=== PATIENT | female | born 1940 | race Caucasian/White ===

== ENCOUNTER 2016-10-28 16:04 | Emergency (ER) | payer OTHER, BC ==
[2016-10-28 16:16] VITALS: TEMP 97.4; BMI 24.0
[2016-10-28] MEDS ORDERED: methylPREDNISolone NA SUCC 125 MG/2 ML VIAL IVPB ONE (16:49)
[2016-10-28] MEDS ORDERED: FAMOTIDINE 20 MG/50 ML IVPB 50 ML IVPB ONE ×2 (16:49→17:05)
[2016-10-28] MEDS ORDERED: SODIUM CHLORIDE 1,000 ML IV STA (16:49)
[2016-10-28] MEDS ORDERED: methylPREDNISolone NA SUCC 125 MG/2 ML VIAL ONE ×2 (17:04→17:06)
--- NOTE | 2016-10-28 17:07 | PDOC ---
History of Present Illness - History of Present Illness Initial Comments: 10/28/16 18:36 Patient is a 76 year old female with no significant medical hx who is presenting to the ED with diffuse itchy rash for three days. One week ago the patient began experiencing some gastric upset and dizziness. The patient characterizes her dizziness as the room spinning and her abdominal discomfort as a squeezing sensation to her upper quadrants. She saw her PMD Dr. Alvaro Kebede on 10/22 for symptoms and was prescribed meclizine and omeprazole. The patient filled her prescriptions and began taking them three days later. Her symptoms relieved initially but then she developed a progressive itchy rash later in the day. Her rash is spread diffusely to her face, chest, back, abdomen , upper and lower extremities. The patient saw her PMD again who prescribed her a methylpred pack and benadryl. She came to the ED today because her symptoms have persisted and worsened despite treatment. Since starting meclizine and omeprazole, patients dizziness and epigastric discomfort have resolved. Patient denies shortness of breath, chest pain, throat swelling, nausea, vomiting, diarrhea, Patient denies using new soaps, new shampoos, new deodorants, new clothes, new detergents, and new lotions. Social Hx: denies tobacco, alcohol, drug use Surgical Hx: Appendectomy <Yaz Rodrigez - Last Filed: 10/28/16 18:36> - General History Source: Patient Exam Limitations: No Limitations <Matthieu Newell - Last Filed: 10/28/16 19:50> - General Chief Complaint: Blood Pressure Problem Stated Complaint: REACTION TO MEDS Time Seen by Provider: 10/28/16 16:26 Past History <Yaz Rdorigez - Last Filed: 10/28/16 18:36> - Past Medical History GI Disorders: Yes (IBS) - Surgical History Appendectomy: Yes - Immunization History Immunization Up to Date: Yes - Psycho/Social/Smoking Cessation Hx Suicidal Ideation: No Smoking History: Never smoked Have you smoked in the past 12 months: No Hx Alcohol Use: No Drug/Substance Use Hx: No Substance Use Type: None Hx Substance Use Treatment: No <Matthieu Newell - Last Filed: 10/28/16 19:50> - Past Medical History Allergies/Adverse Reactions: Allergies Allergy/AdvReac Type Severity Reaction Status Date / Time ketorolac tromethamine Allergy Verified 10/28/16 16:07 [From Toradol] Home Medications: Ambulatory Orders Aspirin [ASA -] 81 mg PO DAILY 07/17/15 Fluticasone Propionate [Flovent Diskus] 50 mcg NS DAILY 07/17/15 Montelukast Na [Singulair -] 10 mg PO HS 07/17/15 Diphenhydramine HCl [Benadryl -] 25 mg PO Q6H PRN #20 capsule 10/28/16 Epinephrine [Adrenaclick] 0.3 mg IJ ONCE PRN #2 auto.injct 10/28/16 Famotidine [Pepcid] 20 mg PO BID PRN #14 tablet 10/28/16 Prednisone 10 mg PO DAILY #15 tablet 10/28/16 Review of Systems - Review of Systems Comments:: 10/28/16 18:37 GENERAL/CONSTITUTIONAL: No fever or chills. No weakness. HEAD, EYES, EARS, NOSE AND THROAT: No change in vision. No ear pain or discharge. No sore throat. CARDIOVASCULAR: No chest pain or shortness of breath. RESPIRATORY: No cough, wheezing, or hemoptysis. GASTROINTESTINAL: Upper quadrant discomfort. No nausea, vomiting, diarrhea or constipation. GENITOURINARY: No dysuria, frequency, or change in urination. MUSCULOSKELETAL: No joint or muscle swelling or pain. No neck or back pain. SKIN: Itchy rash NEUROLOGIC: Dizziness. No headache, loss of consciousness, or change in strength /sensation. <Yaz Rodrigez - Last Filed: 10/28/16 18:36> *Physical Exam - Vital Signs Last Vital Signs Temp Pulse Resp BP Pulse Ox 97.4 F L 79 20 155/77 100 10/28/16 16:08 10/28/16 16:08 10/28/16 16:08 10/28/16 16:08 10/28/16 16:08 - Physical Exam Comments: 10/28/16 18:39 GENERAL: Awake, alert, and fully oriented, in no acute distress HEAD: No signs of trauma EYES: PERRLA, EOMI, sclera anicteric, conjunctiva clear ENT: Auricles normal inspection, hearing grossly normal, nares patent, oropharynx clear without exudates. Moist mucosa NECK: Normal ROM, supple, no lymphadenopathy, JVD, or masses LUNGS: Breath sounds equal, clear to auscultation bilaterally. No wheezes, and no crackles HEART: Regular rate and rhythm, normal S1 and S2, no murmurs, rubs or gallops ABDOMEN: Soft, nontender, normoactive bowel sounds. No guarding, no rebound. No masses EXTREMITIES: Normal range of motion, no edema. No clubbing or cyanosis. No cords, erythema, or tenderness NEUROLOGICAL: Cranial nerves II through XII grossly intact. Normal speech, normal gait SKIN: Diffuse urticaria face, back, chest, extremities upper and lower. Warm, Dry, normal turgor, no lesions noted. ENDOCRINE: No increased thirst. No abnormal weight change. HEMATOLOGIC/LYMPHATIC: No anemia, easy bleeding, or history of blood clots. ALLERGIC/IMMUNOLOGIC: No hives or skin allergy. <Yaz Rodrigez - Last Filed: 10/28/16 18:36> - Vital Signs Last Vital Signs Temp Pulse Resp BP Pulse Ox 97.4 F L 79 20 155/77 100 10/28/16 16:08 10/28/16 16:08 10/28/16 16:08 10/28/16 16:08 10/28/16 16:08 <Matthieu Newell - Last Filed: 10/28/16 19:50> Heart Score/ECG Review - History History: Slightly suspicious - Electrocardiogram EKG: Normal - Age Age: >/= 65 - Risk Factors Based on the list above the patient has:: No risk factors known - Troponin Troponin: </= normal limit - Score Heart Score - Total: 2 #1 ECG reviewed & interpreted by me at: 18:40 10/28/16 19:06 NSR 67, no std/alcides, T wave flat III, normal axis, normal intervals, QTC 452 msec <Matthieu Newell - Last Filed: 10/28/16 19:50> ED Treatment Course - LABORATORY CBC & Chemistry Diagram: 10/28/16 16:09 10/28/16 16:09 - ADDITIONAL ORDERS Additional order review: 10/28/16 16:09 RBC 4.31 MCV 91.0 MCHC 34.5 RDW 13.1 MPV 9.3 D Neutrophils % 68.6 Lymphocytes % 22.8 Monocytes % 7.6 Eosinophils % 0.4 Basophils % 0.6 - RADIOLOGY Radiograph Interpretation: 10/28/16 18:40 Chest X-Ray Impression: No significant interval change or acute lung disease is present. Reported By: Justin Pantoja MD - Medications Given in the ED: ED Medications Discontinued Medications Generic Name Dose Route Start Last Admin Trade Name Juanq PRN Reason Stop Dose Admin Diphenhydramine HCl 25 mg 10/28/16 16:49 10/28/16 17:33 Benadryl Injection - IVPB 10/28/16 16:50 25 mg ONCE ONE Administration Famotidine/Sodium Chloride 50 mls @ 100 mls/hr 10/28/16 16:49 10/28/16 17:34 Pepcid 20 Mg Premixed Ivpb - IVPB 10/28/16 17:18 100 mls/hr ONCE ONE Administration Sodium Chloride 1,000 mls @ 1,000 mls/hr 10/28/16 16:49 10/28/16 17:34 Normal Saline - IV 10/28/16 17:48 1,000 mls/hr ASDIR STA Administration Methylprednisolone Sodium Succinate 125 mg 10/28/16 16:49 10/28/16 17:34 Solu-Medrol - IVPB 10/28/16 16:50 125 mg ONCE ONE Administration <Yaz Rodrigez - Last Filed: 10/28/16 18:36> - LABORATORY CBC & Chemistry Diagram: 10/28/16 16:09 10/28/16 16:09 <Matthieu Newell - Last Filed: 10/28/16 19:50> Medical Decision Making - Medical Decision Making 10/28/16 16:50 A portion of this note was written by my scribe, under my supervision. Vital Signs Temp Pulse Resp BP Pulse Ox 97.4 F L 79 20 155/77 100 10/28/16 16:08 10/28/16 16:08 10/28/16 16:08 10/28/16 16:08 10/28/16 16:08 76 year old female with reportedly no PMH p/w diffuse urticaria. The patient around 10/20/16 was c/o intermittent vertiginous like symptoms. The patient was seen on 10/[address] Alvaro Kebede. The patient was also complaining about some GERD like pain and intermittent vertigo. She was prescribed meclizine and omeprazole. On 10/23, the patient had taken a meclizine and reported no symptoms. 3 days ago (10/25), the patient had a 10 minute episodes of epigastric tightness with vertigo like symptoms. She denied mid sternal chest pain or SOB. The patient then took a meclizine and omeprazole. The patient symptoms improved 10 minutes later. However, gradually later in the day , developed progressively worsening urticaria (diffuse). Went back to Dr. Kebede , was prescribed a methylpred pack and benadryl. Today is the 3rd day, and despite adherence, the urticaria has worsened. No chest pain or SOB. No throat swelling. Came into an ED for evaluation. Patient denies any new soaps, shampoos , exposures. It is not very clear what her allergies is from. At this time, there is no form of anaphylaxis at this time. Will trial IV solu-medrol, IV benadryl, and IV pepcid. The description of the dizziness sounds like vertigo and less likely near syncope. However, with the intermittent epigastric discomfort, will obtain an ECG and troponin and chest xray as well. Will re-evaluate the patient. 10/28/16 19:43 Chest xray reviewed. No acute findings. CBC, BMP 10/28/16 16:09 10/28/16 16:09 CMP Sodium 140 mmol/L (136-145) 10/28/16 16:09 Potassium 4.2 mmol/L (3.5-5.1) 10/28/16 16:09 Chloride 104 mmol/L (98-107) 10/28/16 16:09 Carbon Dioxide 27 mmol/L (21-32) 10/28/16 16:09 Anion Gap 9 (8-16) 10/28/16 16:09 BUN 20 mg/dL (7-18) H D 10/28/16 16:09 Creatinine 0.8 mg/dL (0.55-1.02) D 10/28/16 16:09 Creat Clearance w eGFR > 60 (>60) 10/28/16 16:09 Random Glucose 104 mg/dL (74-106) D 10/28/16 16:09 Calcium 9.2 mg/dL (8.5-10.1) 10/28/16 16:09 Total Bilirubin 0.6 mg/dL (0.2-1.0) 10/28/16 16:09 AST 20 U/L (15-37) D 10/28/16 16:09 ALT 21 U/L (12-78) 10/28/16 16:09 Alkaline Phosphatase 69 U/L (45-117) 10/28/16 16:09 Creatine Kinase 138 IU/L (26-192) 10/28/16 16:09 Troponin I < 0.02 ng/ml (0.00-0.05) 10/28/16 16:09 Total Protein 7.7 g/dl (6.4-8.2) 10/28/16 16:09 Albumin 4.1 g/dl (3.4-5.0) 10/28/16 16:09 Lipase 86 U/L (73-393) 10/28/16 16:54 The patient's skin has improved dramatically and with significant clearing of the urticaria. I had discussed the case with the patient's primary care physician Dr. Kebede. Details of the case is discussed with him and he is aware. He requests that the patient follow up this Tuesday for outpatient follow- up. I will give her a tapering dose of steroids of prednisone at the request of the patient's PMD. Return precautions given. Patient verbalizes understanding agrees with plan. I discussed the physical exam findings, ancillary test results and final diagnoses with the patient. I answered all of the patient's questions. The patient was satisfied with the care received and felt comfortable with the discharge plan and treatment plan. The patient will call their primary care physician within 24 hours to arrange follow-up and will return to the Emergency Department with any new, persistant or worsening symptoms. <Matthieu Newell - Last Filed: 10/28/16 19:50> *DC/Admit/Observation/Transfer - Attestations Scribe Attestion: 10/28/16 18:41 Documentation prepared by Yaz Rodrigez, acting as biomedical equipment specialist for Matthieu Newell MD. <Yaz Rodrigez - Last Filed: 10/28/16 18:36> - Discharge Dispostion Admit: No <Matthieu Newell - Last Filed: 10/28/16 19:50> Diagnosis at time of Disposition: Allergic reaction Qualifiers: Encounter type: initial encounter Qualified Code(s): T78.40XA - Allergy, unspecified, initial encounter - Discharge Dispostion Disposition: HOME Condition at time of disposition: Improved - Prescriptions Prescriptions: Epinephrine [Adrenaclick] 0.3 mg IJ ONCE PRN #2 auto.injct PRN Reason: Anaphylaxis Diphenhydramine HCl [Benadryl -] 25 mg PO Q6H PRN #20 capsule PRN Reason: Rash/Itching Famotidine [Pepcid] 20 mg PO BID PRN #14 tablet PRN Reason: Allergic Reaction Prednisone 10 mg PO DAILY #15 tablet - Referrals Referrals: Alvaro Kebede MD [Primary Care Provider] - - Patient Instructions Printed Discharge Instructions: DI for Adverse Drug Reaction -- Allergic Additional Instructions: Please take the prednisone as prescribed. Take 25 mg of benadryl every 6 hours and/or 20 mg pepcid every 12 hours as needed for rash/allergic reaction. If you have difficulty breathing or throat swelling, please use the adrenaclick (epi-pen) and come to the ER. Follow up with Dr. Alvaro Kebede on Tuesday.
[2016-10-28 18:01] LABS: BASOPHIL 0.6 % (0-2.0); EOSINOPHIL 0.4 % (0-4.5); MCH 31.4 pg (25.7-33.7); MCHC 34.5 g/dl (32.0-36.0); MEAN PLT VOLUME 9.3 fl (7.5-11.1); NEUTROPHILS 68.6 % (42.8-82.8); PLATELET COUNT 228 K/MM3 (134-434); RDW 13.1 % (11.6-15.6); WHITE BLOOD COUNT 5.6 K/mm3 (4.0-10.0)
[2016-10-28 18:25] LABS: ALBUMIN 4.1 g/dl (3.4-5.0); ANION GAP 9 (8-16); BILIRUBIN,TOTAL 0.6 mg/dL (0.2-1.0); CALCIUM 9.2 mg/dL (8.5-10.1); CO2 27 mmol/L (21-32); CREATININE 0.8 mg/dL (0.55-1.02); GLUCOSE,RANDOM 104 mg/dL (74-106); SGOT/AST 20 U/L (15-37); SGPT/ALT 21 U/L (12-78); TOT PROT 7.7 g/dl (6.4-8.2)
[2016-10-28 18:27] LABS: ALK PHOS 69 U/L (45-117); TROPONIN I < 0.02 ng/ml (0.00-0.05)
[2016-10-28 19:05] VITALS: BP 173/85; PULSE 62
--- NOTE | 2016-10-29 10:10 | EKG ---
Test Reason : Blood Pressure : / mmHG Vent. Rate : 072 BPM Atrial Rate : 072 BPM P-R Int : 102 ms QRS Dur : 092 ms QT Int : 396 ms P-R-T Axes : 000 144 -41 degrees QTc Int : 433 ms SINUS RHYTHM WITH SHORT GA WITH PREMATURE ATRIAL COMPLEXES LEFT POSTERIOR FASCICULAR BLOCK POSSIBLE INFERIOR INFARCT , AGE UNDETERMINED NONSPECIFIC T WAVE ABNORMALITY ABNORMAL ECG Confirmed by KENAN VILLALBA MD ([id number]) on 10/29/2016 10:10:37 AM Referred By: Confirmed By:KENAN VILLALBA MD
--- NOTE | 2016-11-01 16:24 | EKG ---
Test Reason : Blood Pressure : / mmHG Vent. Rate : 067 BPM Atrial Rate : 067 BPM P-R Int : 124 ms QRS Dur : 092 ms QT Int : 428 ms P-R-T Axes : 055 051 034 degrees QTc Int : 452 ms NORMAL SINUS RHYTHM WITH SINUS ARRHYTHMIA NORMAL ECG WHEN COMPARED WITH ECG OF 28-OCT-2016 17:11, PREMATURE ATRIAL COMPLEXES ARE NO LONGER PRESENT Confirmed by PAWEL ALVES, ROMÁN ([id number]) on 11/01/2016 4:23:55 PM Referred By: Confirmed By:ROMÁN ARMAS MD
== END 2016-10-28 20:05 | disposition home or self-care (01) ==
LOC: JER 16:04
PROC: 3E033GC Introduction of Other Therapeutic Substance into Peripheral Vein, Percutaneous Approach (ICD-10-PCS; principal; 2016-10-28)
PROC: 3E0333Z Introduction of Anti-inflammatory into Peripheral Vein, Percutaneous Approach (ICD-10-PCS; 2016-10-28)
DX: T78.40XA Allergy, unspecified, initial encounter (principal); L50.0 Allergic urticaria
CPT/HCPCS: 36415; 71020-TC; 80053; 82550; 83690; 84484; 85025; 93005; 93010; 99283-25

== ENCOUNTER 2017-08-30 06:25 | Day surgery (SDC) | payer OTHER, BC ==
[2017-08-29 10:17] VITALS: BMI 24.7
[2017-08-30 06:54] VITALS: TEMP 97.1
[2017-08-30] MEDS ORDERED: BUPIVACAINE HCL/PF 0.25% (2.5MG/ML) 10 ML VIAL ONE (07:49)
[2017-08-30] MEDS ORDERED: BETAMET ACET/BETAMET NA PH 30 MG/5 ML VIAL ONE (07:49)
[2017-08-30] MEDS ORDERED: LIDOCAINE HCL 1%, 10 MG/ML (20ML VIAL) ONE (07:53)
[2017-08-30] MEDS ORDERED: PROPOFOL 20 ML ONE (08:31)
[2017-08-30] MEDS ORDERED: BETAMET ACET/BETAMET NA PH 30 MG/5 ML VIAL IM ONE (08:40)
[2017-08-30] MEDS ORDERED: LIDOCAINE HCL 1% PRESERVATIVE FREE - 30ML VIAL IJ ONE (08:40)
[2017-08-30] MEDS ORDERED: IOHEXOL 180 MG/1 ML ML IJ ONE (08:40)
[2017-08-30] MEDS ORDERED: BUPIVACAINE HCL/PF 0.25% (2.5MG/ML) 10 ML VIAL IJ ONE (08:40)
[2017-08-30 11:06] VITALS: BP 149/70; PULSE 63
--- NOTE | 2017-08-30 14:58 | PROC ---
Procedure Note Procedure: Date of service: 08/30/2017 Preoperative Diagnosis: Low back pain and lumbar radiculopathy on Left Postoperative Diagnosis: Same Procedure Performed: Lumbar Epidural Steroid Injection (LESI) on Left L3-4 with dye under Fluoroscopy Anesthesia: Local / MAC Anesthesiologist: Dr Herron Procedure: I discussed with the patient in detail about the risks, benefits, and alternatives to treatment not only limited to infection, headache, numbness , weakness, and injury to nerves, blood vessels and muscles. The patient understood, agreed and signed the written consent. The patient was placed in the prone position with the head, abdomen and legs supported with the pillows. The lumbosacral area was prepped and draped with Betadine times three in a sterile fashion. Lumbar vertebrae were identified under the C-arm. At L4-5/ L5- S1 level on the right /Left side, 3 ml of 1 % Lidocaine was infiltrated into the skin and subcutaneous tissue. A 3 inch, #20 gauge Tuohy needle was advanced to the epidural space with loss of resistance technique under fluoroscopic guidance. Aspiration was negative for cerebrospinal fluid and blood. 2ml of Omnipaque (radio-opaque dye) was injected to confirm the tip of the needle into epidural space and spread of dye. There was no CSF or vascular spread. The spread of dye was noted cranially and caudally on epidurogram. Aspiration was done again which was negative. A solution of 2.5 ml of Celestone and 2.5 ml of 0.25% Marcaine and a total of 5 ml was injected slowly. While Tuohy needle was withdrawn 2.0 ml of 1 % Lidocaine was infiltrated. Bleeding was checked. Betadine was wiped off. A sterile bandage was placed. The patient tolerated the procedure well. There were no immediate complications. The patient was transferred to the recovery room. The patient was observed for some time and discharged as per ASU criteria. The patient was told to apply ice at the injection site. Follow up appointment was given and also call my office at [phone]. If there is any problem, call my office or report to Emergency Room. Eliseo Swan M.D.
== END 2017-08-30 10:30 | disposition home or self-care (01) ==
LOC: JASU-SURG 06:25
PROVIDERS: ATTEND Physical Medicine & Rehabilitation
PROC: 3E0R33Z Introduction of Anti-inflammatory into Spinal Canal, Percutaneous Approach (ICD-10-PCS; 2017-08-30)
PROC: B01BYZZ Fluoroscopy of Spinal Cord using Other Contrast (ICD-10-PCS; 2017-08-30)
PROC: 3E0R3BZ Introduction of Anesthetic Agent into Spinal Canal, Percutaneous Approach (ICD-10-PCS; principal; 2017-08-30 08:00)
DX: M54.17 Radiculopathy, lumbosacral region (principal); M54.5 Low back pain
CPT/HCPCS: 76000-TC

== ENCOUNTER 2018-12-26 08:23 | Day surgery (SDC) | payer OTHER, BC ==
[2018-12-25 09:00] VITALS: BMI 24.7
[2018-12-26 13:40] LABS: CSF APPEARANCE CLEAR; CSF COLOR COLORLESS; CSF WBC 1
[2018-12-26 14:21] LABS: BF GLUCOSE (CSF ONLY) 51 mg/dL (40-70)
[2018-12-26 15:29] VITALS: BP 140/68; PULSE 70; TEMP 98
[2018-12-28 16:12] LABS: ALBUMIN SERUM 4.5 g/dL (3.5-4.8); CSF IGG INDEX 0.6 (0.0-0.7); IGG QN CSF 2.9 mg/dL (0.0-8.6); IGG/ALB RATIO CSF 0.18 (0.00-0.25)
== END 2018-12-26 14:45 | disposition home or self-care (01) ==
LOC: JRADIR 08:23
PROVIDERS: ATTEND Psychiatry & Neurology Neuromuscular Medicine
PROC: 009U3ZX Drainage of Spinal Canal, Percutaneous Approach, Diagnostic (ICD-10-PCS; principal; 2018-12-26)
PROC: 009U3ZX Drainage of Spinal Canal, Percutaneous Approach, Diagnostic (ICD-10-PCS; 2018-12-26)
PROC: B01BYZZ Fluoroscopy of Spinal Cord using Other Contrast (ICD-10-PCS; 2018-12-26)
DX: G62.9 Polyneuropathy, unspecified (principal); M54.5 Low back pain; G89.29 Other chronic pain
CPT/HCPCS: 36415; 62270; 62272; 76000-TC-FY; 76098-TC-FY; 77003-TC-FY; 82784; 82787; 82945; 83916; 84157; 87070; 87205; 87899; 88108

== ENCOUNTER 2018-12-29 13:12 | Emergency (ER) | payer OTHER, BC ==
[2018-12-29 13:29] VITALS: BP 135/76; PULSE 73; TEMP 98.2; BMI 24.7
--- NOTE | 2018-12-29 14:26 | PDOC ---
History of Present Illness - General Chief Complaint: Headache Stated Complaint: HEADACHE / VOMITING Time Seen by Provider: 12/29/18 13:51 History Source: Patient - History of Present Illness Initial Comments: 12/29/18 15:24 The patient is 78 year old female with a PMH of HTN and seasonal allergies and recent spinal tap for evaluation of spinal mass who presents to our ED c/o 1 day h/o headache. Head started gradually yesterday and is frontal, throbbing without any visual changes, photophobia or vomiting. Endorses intermittent nausea. No h/o trauma. States was undergoing spinal tap after an MRI showed a spinal mass. Allergy: Toradol, Meclizine Surgical: ovarian cyst removal Social: denies toxic habits PMD: Dr. Cornejo Past History - Past Medical History Allergies/Adverse Reactions: Allergies Allergy/AdvReac Type Severity Reaction Status Date / Time ketorolac tromethamine Allergy Verified 12/29/18 13:31 [From Toradol] meclizine Allergy "HIVES" Verified 12/29/18 13:31 Home Medications: Ambulatory Orders Amlodipine Besylate 5 mg PO DAILY 12/25/18 Losartan Potassium 50 mg PO HS 12/25/18 Cetirizine HCl [Zyrtec -] 10 mg PO DAILY 12/29/18 Pregabalin [Lyrica] 25 mg PO ASDIR 12/29/18 Anemia: No Asthma: No Cancer: No Cardiac Disorders: No CVA: No COPD: No CHF: No Dementia: No Diabetes: No GI Disorders: Yes (IBS) Disorders: No HTN: Yes Hypercholesterolemia: No Liver Disease: No Seizures: No Thyroid Disease: No - Surgical History Appendectomy: Yes Orthopedic Surgery: (BUNIONECTOMY) - Immunization History Immunization Up to Date: Yes - Suicide/Smoking/Psychosocial Hx Smoking History: Never smoked Have you smoked in the past 12 months: No Information on smoking cessation initiated: No Hx Alcohol Use: No Drug/Substance Use Hx: No Substance Use Type: None Hx Substance Use Treatment: No *Physical Exam - Vital Signs Last Vital Signs Temp Pulse Resp BP Pulse Ox 98.2 F 73 16 135/76 100 12/29/18 13:25 12/29/18 13:25 12/29/18 13:25 12/29/18 13:25 12/29/18 13:25 - Physical Exam General Appearance: Yes: Nourished, Appropriately Dressed HEENT: positive: Normal Voice, Hearing Grossly Normal Neck: positive: Trachea midline, Supple Respiratory/Chest: positive: Lungs Clear, Normal Breath Sounds Cardiovascular: positive: S1, S2. negative: Edema, JVD Vascular Pulses: Dorsalis-Pedis (R): 2+, Doralis-Pedis (L): 2+ Gastrointestinal/Abdominal: positive: Normal Bowel Sounds, Soft. negative: Guarding, Rebound, Tenderness, Hernia, Mass Extremity: positive: Normal Capillary Refill, Normal Inspection Integumentary: positive: Normal Color, Dry, Warm, Other (LP site C/D/I) Neurologic: positive: insurance counselor II-XII NML intact, Fully Oriented, Alert Medical Decision Making - Medical Decision Making 12/29/18 15:32 78 year old female with headache. S/p Spinal Tap 72 hours previous. VS unremarkable. Frontal diagnosis: post dural puncture headache vs. tension headache vs. meningitis (less likely - no neck stiffness, no h/o fever). Will give head cocktail. Reassess. 12/29/18 16:36 12/29/18 16:42 Patient reassessed @ bedside. Headache mildly improved Will trial Fiorcet 12/29/18 17:46 S/p Fiorcet patient states pain improved but persistent 12/29/18 18:09 Attending discussed case w/Dr. Holden (IR) - noted difficulties in obtaining CSF fluid during LP, requests CT Head to evaluate for CS leak. 12/29/18 18:21 Case d/w Anesthesia (Dr. Alfaro) - will contact after Head CT to evaluate for blood patch 12/29/18 19:[address] negative Patient reassessed at bedside, states pain is improved and wishes for discharge home. Clinically stable for d/c home Will discharge home with return precautions and follow-up evaluation with PMD. I discussed the physical exam findings, ancillary test results and final diagnoses with the patient. I answered all of the patient's questions. The patient was satisfied with the care received and felt comfortable with the discharge plan and treatment plan. The patient will call their primary care physician within 24 hours to arrange follow-up and will return to the Emergency Department with any new, persistent or worsening symptoms. *DC/Admit/Observation/Transfer Diagnosis at time of Disposition: Headache - Discharge Dispostion Disposition: HOME Condition at time of disposition: Good Decision to Admit order: No - Referrals Referrals: Jeremiah Cornejo MD [Primary Care Provider] - - Patient Instructions Additional Instructions: You can take Tylenol (up to 4000 mg daily) alternating with Ibuprofen (up to 3200 mg daily) for your headache. Please return to the ED for any new/worsening/concerning symptoms including increased severity of headache. - Post Discharge Activity
[2018-12-29] MEDS ORDERED: SODIUM CHLORIDE 0.9% 500 ML INFUS.BAG IV ONE ×2 (14:32→17:49)
[2018-12-29] MEDS ORDERED: ACETAMINOPHEN 1000 MG/100 ML VIAL (NON FORMULARY) IVPB ONE (14:32)
[2018-12-29] MEDS ORDERED: METOCLOPRAMIDE HCL INJECTION 10 MG/2 ML VIAL IVPUSH ONE (14:32)
[2018-12-29] MEDS ORDERED: METOCLOPRAMIDE HCL INJECTION 10 MG/2 ML VIAL ONE (14:47)
[2018-12-29] MEDS ORDERED: ACETAMINOPHEN INJECTION 100 ML IVPB ONE (14:47)
[2018-12-29] MEDS ORDERED: ACETAMINOPHEN/CAFFEINE/BUTALBITAL 1 TAB PO ONE (16:37)
[2018-12-29] MEDS ORDERED: ACETAMINOPHEN/CAFFEINE/BUTALBITAL 1 TAB ONE (16:51)
--- NOTE | 2018-12-29 18:11 | PDOC ---
Documentation entered by Julian Uribe SCRIBE, acting as scribe for Aleyda Delgadillo MD. Aleyda Delgadillo MD: This documentation has been prepared by the Rony spencer Collisia, SCRIBE, under my direction and personally reviewed by me in its entirety. I confirm that the documentation accurately reflects all work, treatment, procedures, and medical decision making performed by me. Attending Attestation - Resident Resident Name: Maggi Roberts - ED Attending Attestation I have performed the following: I have examined & evaluated the patient, The case was reviewed & discussed with the resident, I agree w/resident's findings & plan, Exceptions are as noted - HPI HPI: 12/29/18 16:03 The patient is a 78 year old female with a significant past medical history of hypertension who presents to the emergency department with a progressive headachex 2 days. The patient states that she got a spinal tap 3 days ago for evaluation of a LE neuropathy. The patient reports that her headache began two days ago gradually and describes it as a frontal throbbing sensation right above her eyes. She endorses some associated nausea. She denies any vision change, photophobia, head trauma, neck pain, fevers/chills, focal weakness/ numbness or vomiting. The patient denies any other symptoms or complaints. - Physicial Exam PE: 12/29/18 17:56 GENERAL: Awake, alert, and fully oriented, in no acute distress HEAD: No signs of trauma EYES: PERRLA, EOMI, sclera anicteric, conjunctiva clear ENT: Hearing grossly normal, nares patent, oropharynx clear without exudates. Dry MM NECK: Normal ROM, supple, no lymphadenopathy, JVD, or masses. No pain with ROM. No evidence of meningismus LUNGS: Breath sounds equal, clear to auscultation bilaterally. No wheezes, and no crackles HEART: Regular rate and rhythm, normal S1 and S2, no murmurs, rubs or gallops ABDOMEN: Soft, nontender, normoactive bowel sounds. No guarding, no rebound. No masses EXTREMITIES: Normal range of motion, no edema. No cords, erythema, or tenderness NEUROLOGICAL: Normal speech, cranial nerves intact, 5/5 strength in all 4 extremities, normal sensation to light touch in all 4 extremities, normal cerebellar exam, normal gait, normal tone SKIN: Warm, Dry, normal turgor, no rashes or lesions noted. No redness or ttp at site of LP. - Medical Decision Making 12/29/18 18:04 78yo F presents to the ED with gradual onset frontal headache for 2 days after LP 3 days ago. Vitals wnl. Exam with dry MM, supple neck, neuro intact. Likely tension headache vs CSK leak. Low likelihood meningitis as pt has no infectious sxs and is not meningitic on exam or altered. Pt has thus far received fluids, reglan, tylenol. Reprots mild improvement, will add Fioricet and consider c/s anesthesia for blood patch. 12/29/18 18:[address] Simeon from IR who did her LP. REcommends adding a CTH to see if she has intracranial hypotension which would indicate CSF leak. CTH added on. Will reassess pt after medications and consider blood patch if no improvement. Anesthesia was called to give heads up about possible need for blood patch, they are available until 11pm. 12/29/18 19:14 CTH wnl Pt reports significant relief after meds and requests DC home No need for blood patch at this time Pt well appearing, non toxic Return precautions provided Pt clincially stable for DC home I discussed the physical exam findings, ancillary test results and final diagnoses with the patient. I answered all of the patient's questions. The patient was satisfied with the care received and felt comfortable with the discharge plan and treatment plan. The patient will call their primary care physician within 24 hours to arrange follow-up and will return to the Emergency Department with any new, persistent or worsening symptoms.
--- NOTE | 2019-01-02 13:41 | EKG ---
Test Reason : Blood Pressure : / mmHG Vent. Rate : 068 BPM Atrial Rate : 068 BPM P-R Int : 128 ms QRS Dur : 092 ms QT Int : 424 ms P-R-T Axes : 033 050 042 degrees QTc Int : 450 ms SINUS RHYTHM WITH MARKED SINUS ARRHYTHMIA OTHERWISE NORMAL ECG WHEN COMPARED WITH ECG OF 28-OCT-2016 18:38, NONSPECIFIC T WAVE ABNORMALITY NO LONGER EVIDENT IN ANTERIOR LEADS Confirmed by MD Marcela, Bry ([id number]) on 01/02/2019 1:40:56 PM Referred By: Confirmed By:Bry Medrano MD
== END 2018-12-29 19:38 | disposition home or self-care (01) ==
LOC: JER 13:12
PROC: 3E033NZ Introduction of Analgesics, Hypnotics, Sedatives into Peripheral Vein, Percutaneous Approach (ICD-10-PCS; principal; 2018-12-29)
PROC: 3E033GC Introduction of Other Therapeutic Substance into Peripheral Vein, Percutaneous Approach (ICD-10-PCS; 2018-12-29)
DX: R51 Headache (principal); I10 Essential (primary) hypertension; J30.2 Other seasonal allergic rhinitis
CPT/HCPCS: 70450-TC; 93005; 93010; 96374; 96375; 99282-25; J0131

== ENCOUNTER 2019-10-26 15:55 | Observation (INO) | payer OTHER, BC ==
[2019-10-26 16:09] VITALS: BMI 23.0
--- NOTE | 2019-10-26 16:53 | PDOC ---
History of Present Illness - General Stated Complaint: HYPERTENSION Time Seen by Provider: 10/26/19 16:52 History Source: Patient Exam Limitations: No Limitations - History of Present Illness Initial Comments: 10/26/19 16:55 79yF w PMHx HTN, osteoathritis, constipation, R heel spurs presenting w 2d intermittent mild midsternal chest pain, subjective chills, night sweats, generalized malaise, itchy throat, HTN 200/90, nausea. Took home losartan and 81 aspirin today. Also taking hungarian OTC orphenadrine (muscle relaxant), singular, calcium (started 1 week ago) dulcolax, and other meds. Denies fevers, cough, SOB, vomiting, urinary symptoms. Does not remember allergy to nsaids although no reaction to aspirin. Past History - Past Medical History Allergies/Adverse Reactions: Allergies Allergy/AdvReac Type Severity Reaction Status Date / Time ketorolac tromethamine Allergy Verified 10/26/19 16:06 [From Toradol] meclizine Allergy "HIVES" Verified 10/26/19 16:06 Home Medications: Ambulatory Orders Losartan Potassium 50 mg PO HS 12/25/18 Calcium Carb/Magnesium Oxid/D3 [Calcium Magnesium + D Tablet] 1 each PO DAILY Montelukast Na [Singulair -] 10 mg PO HS 10/26/19 Orphenadrine/Aspirin/Caffeine [Norgesic Forte 50-770-60Mg Tb] 1 each PO ASDIR 10/26/19 Anemia: No Asthma: Yes Cancer: No Cardiac Disorders: No CVA: No COPD: No CHF: No Dementia: No Diabetes: No GI Disorders: Yes (IBS) Disorders: No HTN: Yes Hypercholesterolemia: No Liver Disease: No Seizures: No Thyroid Disease: No - Surgical History Appendectomy: Yes Orthopedic Surgery: (BUNIONECTOMY) - Immunization History Immunization Up to Date: Yes - Psycho Social/Smoking Cessation Hx Smoking History: Never smoked Have you smoked in the past 12 months: No Hx Alcohol Use: No Drug/Substance Use Hx: No Substance Use Type: None Hx Substance Use Treatment: No Review of Systems - Review of Systems Constitutional: Yes: Chills. No: Fever HEENTM: No: Eye Pain, Nose Pain Respiratory: No: Cough, Shortness of Breath Cardiac (ROS): Yes: Chest Pain. No: Syncope ABD/GI: Yes: Nausea. No: Abdominal Distended, Constipated, Diarrhea, Vomiting : No: Burning, Dysuria Musculoskeletal: No: Back Pain, Joint Pain Integumentary: No: Bruising, Dryness Neurological: Yes: Headache. No: Seizure Psychiatric: No: Anxiety, Depression Endocrine: No: Intolerance to Cold, Intolerance to Heat Hematologic/Lymphatic: No: Anemia, Blood Clots *Physical Exam - Vital Signs Last Vital Signs Temp Pulse Resp BP Pulse Ox 98 F 81 18 206/92 H 100 10/26/19 16:07 10/26/19 16:07 10/26/19 16:07 10/26/19 16:07 10/26/19 16:07 - Physical Exam General Appearance: Yes: Nourished, Appropriately Dressed. No: Apparent Distress HEENT: positive: EOMI, CORY, Normal Voice, Hearing Grossly Normal. negative: Scleral Icterus (R), Scleral Icterus (L) Respiratory/Chest: positive: Lungs Clear, Normal Breath Sounds. negative: Chest Tender, Respiratory Distress Cardiovascular: positive: Regular Rhythm, Regular Rate, S1, S2. negative: Edema , Murmur Gastrointestinal/Abdominal: positive: Normal Bowel Sounds, Flat, Soft. negative : Tender, Organomegaly Extremity: negative: Swelling Integumentary: positive: Normal Color. negative: Dry Neurologic: positive: financial aid manager II-XII NML intact, Fully Oriented, Alert, Normal Mood/ Affect, Normal Response, Motor Strength 5/5, Responsive. negative: Numbness, Sensory Deficit, Confused, Disoriented Heart Score/ECG Review - History History: Slightly suspicious - Electrocardiogram EKG: Normal - Age Age: >/= 65 - Risk Factors Risk Factors Heart Score: Yes Hx Hypertension Based on the list above the patient has:: 1-2 risk factors - Troponin Troponin: </= normal limit - Score Heart Score - Total: 3 ED Treatment Course - LABORATORY CBC & Chemistry Diagram: 10/26/19 17:36 10/26/19 17:36 Medical Decision Making - Medical Decision Making 10/26/19 17:37 CXR - clear lung green EKG - NSR, HR 67, QTc 441, TWI V1-2 unchanged --- 79yF w PMHx HTN, osteoathritis, constipation, R heel spurs presenting w 2d intermittent mild midsternal chest pain, subjective chills, night sweats, generalized malaise, itchy throat, HTN, nausea. Unknown cause for symptoms Low concern for infection (afebrile, no clear sources of infection) vs thyroid ( normal) vs ACS (neg trop) Refused tylenol, zofran. Does not recall serious allergic reaction to NSAIDS Admitted tele/obvs Dr Mejia for chest pain (HEART 3), ACS r/o - pending duplex 2 leg r/o DVT (pt says legs are swollen even though they are not) Discharge - Discharge Information Problems reviewed: Yes Clinical Impression/Diagnosis: Atypical chest pain Condition: Good - Follow up/Referral - Patient Discharge Instructions - Post Discharge Activity
--- NOTE | 2019-10-26 16:57 | PDOC ---
Attending Attestation - Resident Resident Name: Cm Wolfe - HPI HPI: 10/26/19 18:26 Pt presents to the ED complaining of intermittent, non specific chest pain that started two days ago. Symptoms are Also complaining of intermittent shortness of breath and subjective feeling of swelling and stiffness. Differential includes muscular chest pain, ACS, less likely PE. Will check labs and cardiac enzymes and admit to medicine for r/o ACS. 10/26/19 18:55 - Physicial Exam PE: 10/26/19 18:53 Agree with resident exam. PAtient is alert and oriented and in no acute distress. Lungs are clear. HEart regular rate and rhythm. Abdomen soft, non tender, non distended without guarding or rebound. Ext: no edema or tenderness. - Medical Decision Making 10/26/19 18:54 Pt presents to the ED complaining of intermittent chest pain and bilateral leg stiffness/swelling.
[2019-10-26] MEDS ORDERED: ONDANSETRON 4 MG/2 ML VIAL IVPUSH ONE (17:14)
[2019-10-26 17:46] LABS: BASO % 0.8 % (0-2.0); EOS % 0.7 % (0-4.5); HEMATOCRIT 39.6 % (32.4-45.2); HEMOGLOBIN 13.4 GM/dL (10.7-15.3); LYMPH % 27.2 % (8-40); MCH 31.6 pg (25.7-33.7); MCHC 33.8 g/dl (32.0-36.0); MEAN CELL VOLUME 93.5 fl (80-96); MEAN PLT VOLUME 8.7 fl (7.5-11.1); MONO % 10.2 % (3.8-10.2); NEUT % 61.1 % (42.8-82.8); PLATELET COUNT 224 K/MM3 (134-434); RBC 4.23 M/mm3 (3.60-5.2); RDW 13.3 % (11.6-15.6); WHITE BLOOD COUNT 3.9 K/mm3 (4.0-10.0)
[2019-10-26 18:20] LABS: ALBUMIN 4.1 g/dl (3.4-5.0); ALK PHOS 65 U/L (45-117); ANION GAP 5 MMOL/L (8-16); BILIRUBIN,TOTAL 0.6 mg/dL (0.2-1); BLOOD UREA NITROGEN 15.4 mg/dL (7-18); CALCIUM 9.3 mg/dL (8.5-10.1); CHLORIDE 106 mmol/L (98-107); CO2 28 mmol/L (21-32); CREATININE 0.6 mg/dL (0.55-1.3); GLUCOSE,RANDOM 93 mg/dL (74-106); POTASSIUM 4.1 mmol/L (3.5-5.1); SGOT/AST 20 U/L (15-37); SGPT/ALT 20 U/L (13-61); SODIUM 139 mmol/L (136-145); TOT PROT 7.6 g/dl (6.4-8.2)
[2019-10-26] MEDS ORDERED: ONDANSETRON *ODT* 4 MG TABLET SL ONE (18:26)
[2019-10-26] MEDS ORDERED: ACETAMINOPHEN 325 MG TABLET (FP) PO ONE (18:36)
[2019-10-26] MEDS ORDERED: ONDANSETRON *ODT* 4 MG TABLET ONE (19:57)
[2019-10-26] MEDS ORDERED: ACETAMINOPHEN 325 MG TABLET (FP) ONE (19:57)
--- NOTE | 2019-10-26 21:21 | HP ---
<Tereza Salgado - Last Filed: 10/26/19 22:46> CHIEF COMPLAINT: elevated BP PCP: Dr. Cornejo HISTORY OF PRESENT ILLNESS: 79 yo F PMH HTN, OA, lumbar disc herniation, IBS, R heel spur presents to ED for elevated high blood pressure and self limiting chest pressure. Pt states that she was at the Pharmacy earlier today and noted an elevated SBP> 200s and went home. When she was home she had a feeling of chest pressure and her sister told her to come to the ED. she describes the pressure as mid sternal 3/10 . she states it was non reproducible and non pleuritc . she states it was very short lived and resolved before coming to the ED.Pt was mainly concerned when she kept checking BP at home and was getting elevated BP readings. she states she is compliant with her losartan and amlodipine and she took both this morning. she denies smoking, alcohol or drug use. denies drinking caffeine ER course was notable for: (1) (2) (3) Recent Travel: PAST MEDICAL HISTORY: see HPI PAST SURGICAL HISTORY: Hysterectomy, appendectomy, tonsillectomy Social History: Smoking: Alcohol: Drugs: Allergies ketorolac tromethamine [From Toradol] Allergy (Verified 10/26/19 16:06) meclizine Allergy (Verified 10/26/19 16:06) "HIVES" HOME MEDICATIONS: Home Medications Medication Instructions Recorded Losartan Potassium 50 mg PO HS 12/25/18 Calcium Carb/Magnesium Oxid/D3 1 each PO DAILY 10/26/19 [Calcium Magnesium + D Tablet] Montelukast Na [Singulair -] 10 mg PO HS 10/26/19 Orphenadrine/Aspirin/Caffeine 1 each PO ASDIR 10/26/19 [Norgesic Forte 50-770-60Mg Tb] REVIEW OF SYSTEMS CONSTITUTIONAL: Absent: fever, chills, diaphoresis, generalized weakness, malaise, loss of appetite, weight change HEENT: Absent: rhinorrhea, nasal congestion, throat pain, throat swelling, difficulty swallowing, mouth swelling, ear pain, eye pain, visual changes CARDIOVASCULAR: Absent: chest pain, syncope, palpitations, irregular heart rate, lightheadedness , peripheral edema RESPIRATORY: Absent: cough, shortness of breath, dyspnea with exertion, orthopnea, wheezing, stridor, hemoptysis GASTROINTESTINAL: Absent: abdominal pain, abdominal distension, nausea, vomiting, diarrhea, constipation, melena, hematochezia GENITOURINARY: Absent: dysuria, frequency, urgency, hesitancy, hematuria, flank pain, genital pain MUSCULOSKELETAL: Absent: myalgia, arthralgia, joint swelling, back pain, neck pain SKIN: Absent: rash, itching, pallor HEMATOLOGIC/IMMUNOLOGIC: Absent: easy bleeding, easy bruising, lymphadenopathy, frequent infections ENDOCRINE: Absent: unexplained weight gain, unexplained weight loss, heat intolerance, cold intolerance NEUROLOGIC: Absent: headache, focal weakness or paresthesias, dizziness, unsteady gait, seizure, mental status changes, bladder or bowel incontinence PSYCHIATRIC: Absent: anxiety, depression, suicidal or homicidal ideation, hallucinations. PHYSICAL EXAMINATION Vital Signs - 24 hr 10/26/19 10/26/19 16:07 20:53 Temperature 98 F Pulse Rate 81 Pulse Rate [ 76 Right Radial] Respiratory 18 18 Rate Blood Pressure 206/92 H Blood Pressure 203/81 H [Left Arm] O2 Sat by Pulse 100 99 Oximetry (%) GENERAL: Awake, alert, and fully oriented, in no acute distress. HEAD: Normal with no signs of trauma. EYES: Pupils equal, round and reactive to light, extraocular movements intact, sclera anicteric, conjunctiva clear. No lid lag. EARS, NOSE, THROAT: Ears normal, nares patent, oropharynx clear without exudates. Moist mucous membranes. NECK: Normal range of motion, supple without lymphadenopathy, JVD, or masses. LUNGS: Breath sounds equal, clear to auscultation bilaterally. No wheezes, and no crackles. No accessory muscle use. HEART: Regular rate and rhythm, normal S1 and S2 without murmur, rub or gallop. ABDOMEN: Soft, nontender, not distended, normoactive bowel sounds, no guarding, no rebound, no masses. No hepatomegaly or splenomegaly. MUSCULOSKELETAL: Normal range of motion at all joints. No bony deformities or tenderness. No CVA tenderness. UPPER EXTREMITIES: 2+ pulses, warm, well-perfused. No cyanosis. No clubbing. No peripheral edema. LOWER EXTREMITIES: 2+ pulses, warm, well-perfused. No calf tenderness. No peripheral edema. NEUROLOGICAL: Cranial nerves II-XII intact. Normal speech. Normal gait. PSYCHIATRIC: Cooperative. Good eye contact. Appropriate mood and affect. SKIN: Warm, dry, normal turgor, no rashes or lesions noted, normal capillary refill. Laboratory Results - last 24 hr 10/26/19 10/26/19 17:36 17:36 WBC 3.9 L RBC 4.23 Hgb 13.4 Hct 39.6 MCV 93.5 MCH 31.6 MCHC 33.8 RDW 13.3 Plt Count 224 MPV 8.7 Absolute Neuts (auto) 2.4 Neutrophils % 61.1 Lymphocytes % 27.2 Monocytes % 10.2 Eosinophils % 0.7 Basophils % 0.8 Nucleated RBC % 0 Sodium 139 Potassium 4.1 Chloride 106 Carbon Dioxide 28 Anion Gap 5 L BUN 15.4 Creatinine 0.6 Est GFR (CKD-EPI)AfAm 99.77 Est GFR (CKD-EPI)NonAf 86.09 Random Glucose 93 Calcium 9.3 Total Bilirubin 0.6 AST 20 ALT 20 Alkaline Phosphatase 65 Troponin I < 0.02 Total Protein 7.6 Albumin 4.1 TSH 3.03 ASSESSMENT/PLAN: 79 yo F w/ PMH of HTN HTN urgency - coreg 6.25 once - losartan 50 mg if BP still elevated -continue cardiac monitoring r/o ACS -1st trop negative, pending second -EKG NSR, no ST changes - pending Echo - keep NPO for any possible intervention -lipid panel, A1C R LE numbness, r/o ischemia - will check RJ -->1.08 - consider vascular consult DVT ppx: heparin Dispo: tele obs ATTENDING PHYSICIAN STATEMENT I saw and evaluated the patient. I reviewed the resident's note and discussed the case with the resident. I agree with the resident's findings and plan as documented. SUBJECTIVE: OBJECTIVE: ASSESSMENT AND PLAN: <Ankur Mejia - Last Filed: 10/27/19 00:38> CHIEF COMPLAINT: PCP: HISTORY OF PRESENT ILLNESS: ER course was notable for: (1) (2) (3) Recent Travel: PAST MEDICAL HISTORY: PAST SURGICAL HISTORY: Social History: Smoking: Alcohol: Drugs: Allergies ketorolac tromethamine [From Toradol] Allergy (Verified 10/26/19 16:06) meclizine Allergy (Verified 10/26/19 16:06) "HIVES" HOME MEDICATIONS: Home Medications Medication Instructions Recorded Losartan Potassium 50 mg PO HS 12/25/18 Calcium Carb/Magnesium Oxid/D3 1 each PO DAILY 10/26/19 [Calcium Magnesium + D Tablet] Montelukast Na [Singulair -] 10 mg PO HS 10/26/19 Orphenadrine/Aspirin/Caffeine 1 each PO ASDIR 10/26/19 [Norgesic Forte 50-770-60Mg Tb] REVIEW OF SYSTEMS CONSTITUTIONAL: Absent: fever, chills, diaphoresis, generalized weakness, malaise, loss of appetite, weight change HEENT: Absent: rhinorrhea, nasal congestion, throat pain, throat swelling, difficulty swallowing, mouth swelling, ear pain, eye pain, visual changes CARDIOVASCULAR: Absent: chest pain, syncope, palpitations, irregular heart rate, lightheadedness , peripheral edema RESPIRATORY: Absent: cough, shortness of breath, dyspnea with exertion, orthopnea, wheezing, stridor, hemoptysis GASTROINTESTINAL: Absent: abdominal pain, abdominal distension, nausea, vomiting, diarrhea, constipation, melena, hematochezia GENITOURINARY: Absent: dysuria, frequency, urgency, hesitancy, hematuria, flank pain, genital pain MUSCULOSKELETAL: Absent: myalgia, arthralgia, joint swelling, back pain, neck pain SKIN: Absent: rash, itching, pallor HEMATOLOGIC/IMMUNOLOGIC: Absent: easy bleeding, easy bruising, lymphadenopathy, frequent infections ENDOCRINE: Absent: unexplained weight gain, unexplained weight loss, heat intolerance, cold intolerance NEUROLOGIC: Absent: headache, focal weakness or paresthesias, dizziness, unsteady gait, seizure, mental status changes, bladder or bowel incontinence PSYCHIATRIC: Absent: anxiety, depression, suicidal or homicidal ideation, hallucinations. PHYSICAL EXAMINATION Vital Signs - 24 hr 10/26/19 10/26/19 10/26/19 16:07 20:53 21:55 Temperature 98 F Pulse Rate 81 Pulse Rate [ 76 Right Radial] Respiratory 18 18 20 Rate Blood Pressure 206/92 H Blood Pressure 203/81 H 192/91 H [Left Arm] O2 Sat by Pulse 100 99 97 Oximetry (%) 10/26/19 22:00 Temperature 98.7 F Pulse Rate 70 Pulse Rate [ Right Radial] Respiratory 20 Rate Blood Pressure 148/93 Blood Pressure [Left Arm] O2 Sat by Pulse Oximetry (%) GENERAL: Awake, alert, and fully oriented, in no acute distress. HEAD: Normal with no signs of trauma. EYES: Pupils equal, round and reactive to light, extraocular movements intact, sclera anicteric, conjunctiva clear. No lid lag. EARS, NOSE, THROAT: Ears normal, nares patent, oropharynx clear without exudates. Moist mucous membranes. NECK: Normal range of motion, supple without lymphadenopathy, JVD, or masses. LUNGS: Breath sounds equal, clear to auscultation bilaterally. No wheezes, and no crackles. No accessory muscle use. HEART: Regular rate and rhythm, normal S1 and S2 without murmur, rub or gallop. ABDOMEN: Soft, nontender, not distended, normoactive bowel sounds, no guarding, no rebound, no masses. No hepatomegaly or splenomegaly. MUSCULOSKELETAL: Normal range of motion at all joints. No bony deformities or tenderness. No CVA tenderness. UPPER EXTREMITIES: 2+ pulses, warm, well-perfused. No cyanosis. No clubbing. No peripheral edema. LOWER EXTREMITIES: 2+ pulses, warm, well-perfused. No calf tenderness. No peripheral edema. NEUROLOGICAL: Cranial nerves II-XII intact. Normal speech. Normal gait. PSYCHIATRIC: Cooperative. Good eye contact. Appropriate mood and affect. SKIN: Warm, dry, normal turgor, no rashes or lesions noted, normal capillary refill. Laboratory Results - last 24 hr 10/26/19 10/26/19 10/26/19 17:36 17:36 22:50 WBC 3.9 L RBC 4.23 Hgb 13.4 Hct 39.6 MCV 93.5 MCH 31.6 MCHC 33.8 RDW 13.3 Plt Count 224 MPV 8.7 Absolute Neuts (auto) 2.4 Neutrophils % 61.1 Lymphocytes % 27.2 Monocytes % 10.2 Eosinophils % 0.7 Basophils % 0.8 Nucleated RBC % 0 Sodium 139 Potassium 4.1 Chloride 106 Carbon Dioxide 28 Anion Gap 5 L BUN 15.4 Creatinine 0.6 Est GFR (CKD-EPI)AfAm 99.77 Est GFR (CKD-EPI)NonAf 86.09 Random Glucose 93 Calcium 9.3 Total Bilirubin 0.6 AST 20 ALT 20 Alkaline Phosphatase 65 Troponin I < 0.02 < 0.02 Total Protein 7.6 Albumin 4.1 TSH 3.03 ASSESSMENT/PLAN: Visit type - Emergency Visit Emergency Visit: Yes ED Registration Date: 10/26/19 Care time: The patient presented to the Emergency Department on the above date and was hospitalized for further evaluation of their emergent condition. - New Patient This patient is new to me today: Yes Date on this admission: 10/27/19 - Critical Care Critical Care patient: No ATTENDING PHYSICIAN STATEMENT I saw and evaluated the patient. I reviewed the resident's note and discussed the case with the resident. I agree with the resident's findings and plan as documented. SUBJECTIVE: 79 years old F with PMH of HTN, OA, IBS. lumbar disc herniation presented to ED with intermittent midsternal chest pressure and elevated BP. She went to pharmacy to check her BP and it was found to have SBP >200. She also c/o RLE numbness for many weeks. After coming to ED she was found to have elevated BP 206/92 troponin negative OBJECTIVE: Last Vital Signs Temp Pulse Resp BP Pulse Ox 98.7 F 70 20 148/93 97 10/26/19 22:00 10/26/19 22:00 10/26/19 22:00 10/26/19 22:00 10/26/19 21:55 General Appearance: Yes: Nourished, Appropriately Dressed. No: Apparent Distress HEENT: positive: EOMI, CORY, Normal Voice, Hearing Grossly Normal. negative: Scleral Icterus (R), Scleral Icterus (L) Respiratory/Chest: positive: Lungs Clear, Normal Breath Sounds. negative: Chest Tender, Respiratory Distress Cardiovascular: positive: Regular Rhythm, Regular Rate, S1, S2. negative: Edema , Murmur Gastrointestinal/Abdominal: positive: Normal Bowel Sounds, Flat, Soft. negative : Tender, Organomegaly Extremity: negative: Swelling Integumentary: positive: Normal Color. 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 negative: Numbness, Sensory Deficit, Confused, Disoriented ASSESSMENT AND PLAN: HTN urgency Chest pain r/o ACS Obs to tele control BP - Give coreg and losartan now goal is around 160/90 tonight. may use labetalol 10 mg IV PRN serial cardiac enzymes EKG ECHO Keep NPO for now Lipid panel A1c Resume home antihypertensives. titrate up losartan as needed DVT ppx R LE numbess and mild cold to touch how ever distal pulses are palpable. Do RJ /PVR v/l LE vascular Doppler b/l LE
[2019-10-26] MEDS ORDERED: CARVEDILOL 6.25 MG TABLET (FP) PO ONE (21:23)
[2019-10-26] MEDS ORDERED: CARVEDILOL 3.125 MG TABLET (FP) ONE (21:26)
[2019-10-26] MEDS: HEPARIN NA (PORCINE) 5,000 UNITS/ML 1ML VIAL SQ SCH (22:58)
[2019-10-27] MEDS ORDERED: ONDANSETRON 4 MG TABLET PO ONE (01:13)
[2019-10-27] MEDS ORDERED: MELATONIN 5 MG TABLETS PO ONE (01:17)
[2019-10-27] MEDS ORDERED: LOSARTAN POTASSIUM 50 MG TABLET (FP) PO ONE (01:20)
--- NOTE | 2019-10-27 02:11 | PN ---
Progress Note (short form) - Note Progress Note: prior note incomplete, submitted in error CHIEF COMPLAINT: elevated BP PCP: Dr. Cornejo HISTORY OF PRESENT ILLNESS: 79 yo F PMH HTN, OA, lumbar disc herniation, IBS, R heel spur presents to ED for elevated high blood pressure and self limiting chest pressure. Pt states that she was at the Pharmacy earlier today and noted an elevated SBP> 200s and went home. When she was home she had a feeling of chest pressure and her sister told her to come to the ED. she describes the pressure as mid sternal 3/10 . she states it was non reproducible and non pleuritc . she states it was very short lived and resolved before coming to the ED.Pt was mainly concerned when she kept checking BP at home and was getting elevated BP readings. she states she is compliant with her losartan and amlodipine and she took both this morning. she denies smoking, alcohol or drug use. denies drinking caffeine ER course was notable for: (1) EKG: NSR (2)trop negative (3) PAST MEDICAL HISTORY: see HPI PAST SURGICAL HISTORY: Hysterectomy, appendectomy, tonsillectomy Social History: Smoking: Alcohol: Drugs: Allergies ketorolac tromethamine [From Toradol] Allergy (Verified 10/26/19 16:06) meclizine Allergy (Verified 10/26/19 16:06) "HIVES" HOME MEDICATIONS: Home Medications Medication Instructions Recorded Losartan Potassium 50 mg PO HS 12/25/18 Calcium Carb/Magnesium Oxid/D3 1 each PO DAILY 10/26/19 [Calcium Magnesium + D Tablet] Montelukast Na [Singulair -] 10 mg PO HS 10/26/19 Orphenadrine/Aspirin/Caffeine 1 each PO ASDIR 10/26/19 [Norgesic Forte 50-770-60Mg Tb] REVIEW OF SYSTEMS CONSTITUTIONAL: Absent: fever, chills, diaphoresis, generalized weakness, malaise, loss of appetite, weight change HEENT: Absent: rhinorrhea, nasal congestion, throat pain, throat swelling, difficulty swallowing, mouth swelling, ear pain, eye pain, visual changes CARDIOVASCULAR: Present: chest pain, palpitations Absent: syncope irregular heart rate, lightheadedness, peripheral edema RESPIRATORY: Absent: cough, shortness of breath, dyspnea with exertion, orthopnea, wheezing, stridor, hemoptysis GASTROINTESTINAL: Absent: abdominal pain, abdominal distension, nausea, vomiting, diarrhea, constipation, melena, hematochezia GENITOURINARY: Absent: dysuria, frequency, urgency, hesitancy, hematuria, flank pain, genital pain MUSCULOSKELETAL: Absent: myalgia, arthralgia, joint swelling, back pain, neck pain SKIN: Absent: rash, itching, pallor HEMATOLOGIC/IMMUNOLOGIC: Absent: easy bleeding, easy bruising, lymphadenopathy, frequent infections ENDOCRINE: Absent: unexplained weight gain, unexplained weight loss, heat intolerance, cold intolerance NEUROLOGIC: Absent: headache, focal weakness or paresthesias, dizziness, unsteady gait, seizure, mental status changes, bladder or bowel incontinence PSYCHIATRIC: Present: anxiety Absent: anxiety, depression, suicidal or homicidal ideation, hallucinations. PHYSICAL EXAMINATION Vital Signs - 24 hr 10/26/19 10/26/19 16:07 20:53 Temperature 98 F Pulse Rate 81 Pulse Rate [ 76 Right Radial] Respiratory 18 18 Rate Blood Pressure 206/92 H Blood Pressure 203/81 H [Left Arm] O2 Sat by Pulse 100 99 Oximetry (%) GENERAL: Awake, alert, and fully oriented, in no acute distress. HEAD: Normal with no signs of trauma. EYES: Pupils equal, round and reactive to light, extraocular movements intact EARS, NOSE, THROAT: oropharynx clear without exudates. Moist mucous membranes. NECK: Normal range of motion, supple without lymphadenopathy, JVD, or masses. LUNGS: Breath sounds equal, clear to auscultation bilaterally. No wheezes, and no crackles. No accessory muscle use. HEART: Regular rate and rhythm, normal S1 and S2 without murmur, rub or gallop. ABDOMEN: Soft, nontender, not distended, normoactive bowel sounds, no guarding, no rebound, no masses. No hepatomegaly or splenomegaly. MUSCULOSKELETAL: No CVA tenderness. UPPER EXTREMITIES: 2+ pulses, warm, well-perfused. No cyanosis. No clubbing. No peripheral edema. LOWER EXTREMITIES: R lower extremity is cool to touch, pulses present b/l. NEUROLOGICAL: Cranial nerves II-XII intact. Normal speech. PSYCHIATRIC: Cooperative. Good eye contact. Appropriate mood and affect. Laboratory Results - last 24 hr 10/26/19 10/26/19 17:36 17:36 WBC 3.9 L RBC 4.23 Hgb 13.4 Hct 39.6 MCV 93.5 MCH 31.6 MCHC 33.8 RDW 13.3 Plt Count 224 MPV 8.7 Absolute Neuts (auto) 2.4 Neutrophils % 61.1 Lymphocytes % 27.2 Monocytes % 10.2 Eosinophils % 0.7 Basophils % 0.8 Nucleated RBC % 0 Sodium 139 Potassium 4.1 Chloride 106 Carbon Dioxide 28 Anion Gap 5 L BUN 15.4 Creatinine 0.6 Est GFR (CKD-EPI)AfAm 99.77 Est GFR (CKD-EPI)NonAf 86.09 Random Glucose 93 Calcium 9.3 Total Bilirubin 0.6 AST 20 ALT 20 Alkaline Phosphatase 65 Troponin I < 0.02 Total Protein 7.6 Albumin 4.1 TSH 3.03 ASSESSMENT/PLAN: 79 yo F w/ PMH of HTN OA, lumbar disc herniation, IBS, R heel spur presents to ED for elevated high blood pressure and self limiting chest pressure.pt is ad mitted for hypertensive urgency. HTN urgency - coreg 6.25 once, losartan 50 mg once - continue home losartan and amlodipine daily -continue cardiac monitoring chest pain r/o ACS -1st trop negative, pending second -EKG NSR, no ST changes - pending Echo - keep NPO for any possible intervention -lipid panel, A1C R LE numbness, r/o ischemia - will check RJ -->1.08 - pt seen by neurologist and was told 2/2 disc herniation - consider vascular consult DVT ppx: heparin Dispo: tele obs
[2019-10-27 06:29] LABS: BASO % 0.7 % (0-2.0); EOS % 0.7 % (0-4.5); HEMATOCRIT 37.1 % (32.4-45.2); LYMPH % 25.4 % (8-40); MCH 32.4 pg (25.7-33.7); MCHC 34.9 g/dl (32.0-36.0); MEAN CELL VOLUME 92.8 fl (80-96); MEAN PLT VOLUME 8.7 fl (7.5-11.1); MONO % 8.1 % (3.8-10.2); NEUT % 65.1 % (42.8-82.8); PLATELET COUNT 220 K/MM3 (134-434); RDW 13.3 % (11.6-15.6); WHITE BLOOD COUNT 4.2 K/mm3 (4.0-10.0)
[2019-10-27] MEDS: HEPARIN NA (PORCINE) 5,000 UNITS/ML 1ML VIAL SQ SCH ×2 (06:48→14:00)
[2019-10-27 06:55] LABS: CHOLESTEROL 233 mg/dL (50-200); HDL CHOLESTEROL 81 mg/dL (40-60); LDL CHOLESTEROL (ONLY SJRH) 134 mg/dL (5-100); TRIGLYCERIDES 76 mg/dL (0-150)
[2019-10-27 07:05] LABS: MAGNESIUM 2.3 mg/dL (1.8-2.4); PHOSPHOROUS 3.7 mg/dL (2.5-4.9)
[2019-10-27 08:24] VITALS: TEMP 97.8
--- NOTE | 2019-10-27 08:52 | PN ---
Progress Note (short form) - Note Progress Note: Vital Signs Temperature 97.8 F 10/27/19 08:19 Pulse Rate 64 10/27/19 08:19 Respiratory Rate 17 10/27/19 08:19 Blood Pressure 135/68 10/27/19 08:19 O2 Sat by Pulse Oximetry (%) 98 10/27/19 08:19 GENERAL: The patient is awake, alert, and fully oriented, in no acute distress. HEAD: Normal with no signs of trauma. EYES: PERRL, extraocular movements intact, sclera anicteric, conjunctiva clear. No ptosis. ENT: Ears normal, nares patent, oropharynx clear without exudates, moist mucous membranes. NECK: Trachea midline, full range of motion, supple. LUNGS: Breath sounds equal, clear to auscultation bilaterally, no wheezes, no crackles, no accessory muscle use. HEART: Regular rate and rhythm, S1, S2 without murmur, rub or gallop. ABDOMEN: Soft, nontender, nondistended, normoactive bowel sounds, no guarding, no rebound, no hepatosplenomegaly, no masses. EXTREMITIES: 2+ pulses, warm, well-perfused, no edema. NEUROLOGICAL: Cranial nerves II through XII grossly intact. Normal speech, gait not observed. PSYCH: Normal mood, normal affect. SKIN: Warm, dry, normal turgor, no rashes or lesions noted CBCD WBC 4.2 K/mm3 (4.0-10.0) 10/27/19 06:03 RBC 4.00 M/mm3 (3.60-5.2) 10/27/19 06:03 Hgb 13.0 GM/dL (10.7-15.3) 10/27/19 06:03 Hct 37.1 % (32.4-45.2) 10/27/19 06:03 MCV 92.8 fl (80-96) 10/27/19 06:03 MCHC 34.9 g/dl (32.0-36.0) 10/27/19 06:03 RDW 13.3 % (11.6-15.6) 10/27/19 06:03 Plt Count 220 K/MM3 (134-434) 10/27/19 06:03 MPV 8.7 fl (7.5-11.1) 10/27/19 06:03 CMP Sodium 139 mmol/L (136-145) 10/26/19 17:36 Potassium 4.1 mmol/L (3.5-5.1) 10/26/19 17:36 Chloride 106 mmol/L (98-107) 10/26/19 17:36 Carbon Dioxide 28 mmol/L (21-32) 10/26/19 17:36 Anion Gap 5 MMOL/L (8-16) L 10/26/19 17:36 BUN 15.4 mg/dL (7-18) 10/26/19 17:36 Creatinine 0.6 mg/dL (0.55-1.3) 10/26/19 17:36 Random Glucose 93 mg/dL (74-106) 10/26/19 17:36 Calcium 9.3 mg/dL (8.5-10.1) 10/26/19 17:36 Total Bilirubin 0.6 mg/dL (0.2-1) 10/26/19 17:36 AST 20 U/L (15-37) 10/26/19 17:36 ALT 20 U/L (13-61) 10/26/19 17:36 Alkaline Phosphatase 65 U/L (45-117) 10/26/19 17:36 Total Protein 7.6 g/dl (6.4-8.2) 10/26/19 17:36 Albumin 4.1 g/dl (3.4-5.0) 10/26/19 17:36 CARDIAC ENZYMES Troponin I < 0.02 ng/ml (0.00-0.05) 10/26/19 22:50 Current Medications Generic Name Dose Route Start Last Admin Trade Name Juanq PRN Reason Stop Dose Admin Heparin Sodium (Porcine) 5,000 unit 10/26/19 22:00 10/27/19 06:48 Heparin - SQ 5,000 unit TID [facility] Administration Losartan Potassium 50 mg 10/27/19 22:00 Cozaar - PO [facility] Montelukast Sodium 10 mg 10/27/19 22:00 Singulair - PO [facility] Home Medications Medication Instructions Recorded Losartan Potassium 50 mg PO HS 12/25/18 Calcium Carb/Magnesium Oxid/D3 1 each PO DAILY 10/26/19 [Calcium Magnesium + D Tablet] Montelukast Na [Singulair -] 10 mg PO HS 10/26/19 Orphenadrine/Aspirin/Caffeine 1 each PO ASDIR 10/26/19 [Norgesic Forte 50-770-60Mg Tb] Laboratory Tests 10/26/19 10/26/19 10/27/19 17:36 22:50 06:03 Troponin I < 0.02 < 0.02 Triglycerides Cholesterol Total LDL Cholesterol HDL Cholesterol TSH 3.76 H 10/27/19 06:03 Troponin I Triglycerides 76 Cholesterol 233 H Total LDL Cholesterol 134 H HDL Cholesterol 81 H TSH Assessment and plan: Patient is a 79yof with Pmhx of HTN OA, lumbar disc herniation, IBS, presented to ED for elevated high blood pressure over 200 SBp. #HTN urgency: #Acute chest pain r/o ACS #R LE numbness, r/o ischemia added; coreg, lipitor,ecotrin waiting for vascular studies consulted vascular Benites. DVT ppx: heparin
[2019-10-27] MEDS ORDERED: CARVEDILOL 3.125 MG TABLET (FP) PO SCH (10:00)
[2019-10-27] MEDS ORDERED: ASPIRIN 325 MG ENTERIC COATED TABLET (FP) PO SCH (10:00)
--- NOTE | 2019-10-27 12:36 | DS ---
Physical Exam: SUBJECTIVE: Patient seen and examined Patient is feeling better, sister at bedside. Blood pressure is better now, patient stated that she is under lots of stress, which caused her bp to go up. OBJECTIVE: Initial Vital Signs Temp Pulse Resp BP Pulse Ox 98 F 81 18 206/92 H 100 10/26/19 16:07 10/26/19 16:07 10/26/19 16:07 10/26/19 16:07 10/26/19 16:07 Vital Signs Temperature 97.8 F 10/27/19 08:19 Pulse Rate 64 10/27/19 08:19 Respiratory Rate 17 10/27/19 08:19 Blood Pressure 135/68 10/27/19 08:19 O2 Sat by Pulse Oximetry (%) 98 10/27/19 08:19 PHYSICAL EXAM GENERAL: The patient is awake, alert, and fully oriented, in no acute distress. HEAD: Normal with no signs of trauma. EYES: PERRL, extraocular movements intact, sclera anicteric, conjunctiva clear. ENT: Ears normal, oropharynx clear without exudates, moist mucous membranes. NECK: Trachea midline, full range of motion, supple. LUNGS: Breath sounds equal, clear to auscultation bilaterally, no wheezes, no crackles, no accessory muscle use. HEART: Regular rate and rhythm, S1, S2 without murmur, rub or gallop. ABDOMEN: Soft, nontender, nondistended, normoactive bowel sounds, no guarding, no rebound, no hepatosplenomegaly, no masses. EXTREMITIES: patient has good pulses, warm, well-perfused, no edema. NEUROLOGICAL: Cranial nerves II through XII grossly intact. Normal speech, gait not observed. PSYCH: Normal mood, normal affect. SKIN: Warm, dry, normal turgor, no rashes or lesions noted. CBCD WBC 4.2 K/mm3 (4.0-10.0) 10/27/19 06:03 RBC 4.00 M/mm3 (3.60-5.2) 10/27/19 06:03 Hgb 13.0 GM/dL (10.7-15.3) 10/27/19 06:03 Hct 37.1 % (32.4-45.2) 10/27/19 06:03 MCV 92.8 fl (80-96) 10/27/19 06:03 MCHC 34.9 g/dl (32.0-36.0) 10/27/19 06:03 RDW 13.3 % (11.6-15.6) 10/27/19 06:03 Plt Count 220 K/MM3 (134-434) 10/27/19 06:03 MPV 8.7 fl (7.5-11.1) 10/27/19 06:03 CMP Sodium 139 mmol/L (136-145) 10/26/19 17:36 Potassium 4.1 mmol/L (3.5-5.1) 10/26/19 17:36 Chloride 106 mmol/L (98-107) 10/26/19 17:36 Carbon Dioxide 28 mmol/L (21-32) 10/26/19 17:36 Anion Gap 5 MMOL/L (8-16) L 10/26/19 17:36 BUN 15.4 mg/dL (7-18) 10/26/19 17:36 Creatinine 0.6 mg/dL (0.55-1.3) 10/26/19 17:36 Random Glucose 93 mg/dL (74-106) 10/26/19 17:36 Calcium 9.3 mg/dL (8.5-10.1) 10/26/19 17:36 Total Bilirubin 0.6 mg/dL (0.2-1) 10/26/19 17:36 AST 20 U/L (15-37) 10/26/19 17:36 ALT 20 U/L (13-61) 10/26/19 17:36 Alkaline Phosphatase 65 U/L (45-117) 10/26/19 17:36 Total Protein 7.6 g/dl (6.4-8.2) 10/26/19 17:36 Albumin 4.1 g/dl (3.4-5.0) 10/26/19 17:36 CARDIAC ENZYMES Troponin I < 0.02 ng/ml (0.00-0.05) 10/26/19 22:50 Current Medications Generic Name Dose Route Start Last Admin Trade Name Freq PRN Reason Stop Dose Admin Heparin Sodium (Porcine) 5,000 unit 10/26/19 22:00 10/27/19 06:48 Heparin - SQ 5,000 unit TID [facility] Administration Losartan Potassium 50 mg 10/27/19 22:00 Cozaar - PO HS [facility] Montelukast Sodium 10 mg 10/27/19 22:00 Singulair - PO HS [facility] Home Medications Medication Instructions Recorded Losartan Potassium 50 mg PO HS 12/25/18 Calcium Carb/Magnesium Oxid/D3 1 each PO DAILY 10/26/19 [Calcium Magnesium + D Tablet] Montelukast Na [Singulair -] 10 mg PO HS 10/26/19 Orphenadrine/Aspirin/Caffeine 1 each PO ASDIR 10/26/19 [Norgesic Forte 50-770-60Mg Tb] Laboratory Tests 10/26/19 10/26/19 10/27/19 17:36 22:50 06:03 Troponin I < 0.02 < 0.02 Triglycerides Cholesterol Total LDL Cholesterol HDL Cholesterol TSH 3.76 H 10/27/19 06:03 Troponin I Triglycerides 76 Cholesterol 233 H Total LDL Cholesterol 134 H HDL Cholesterol 81 H TSH Home Medications Medication Instructions Recorded RX: Losartan Potassium 50 mg PO HS 12/25/18 RX: Calcium Carb/Magnesium Oxid/D3 1 each PO DAILY 10/26/19 [Calcium Magnesium + D Tablet] RX: Montelukast Na [Singulair -] 10 mg PO HS 10/26/19 RX: Orphenadrine/Aspirin/Caffeine 1 each PO ASDIR 10/26/19 [Norgesic Forte 50-770-60 mg Tb] Amlodipine Besylate [Norvasc -] 2.5 mg PO DAILY #30 tablet 10/27/19 Cholecalciferol (Vitamin D3) 2,000 unit PO DAILY #30 capsule 10/27/19 [D-2000] RX: Aspirin Coated [Ecotrin -] 325 mg PO DAILY tablet. 10/27/19 RX: Atorvastatin Ca [Lipitor] 20 mg PO HS #30 tablet 10/27/19 Current Medications Generic Name Dose Route Start Last Admin Trade Name Freq PRN Reason Stop Dose Admin Aspirin 325 mg 10/27/19 10:00 10/27/19 10:54 Ecotrin - PO 325 mg DAILY [facility] Administration Atorvastatin Calcium 40 mg 10/27/19 22:00 Lipitor - PO [facility] Carvedilol 3.125 mg 10/27/19 10:00 10/27/19 10:54 Coreg - PO 3.125 mg BID JEANNIE Administration Heparin Sodium (Porcine) 5,000 unit 10/26/19 22:00 10/27/19 14:00 Heparin - SQ 5,000 unit TID [facility] Administration Losartan Potassium 100 mg 10/27/19 22:00 Cozaar - PO [facility] Montelukast Sodium 10 mg 10/27/19 22:00 Singulair - PO [facility] HOSPITAL COURSE: Date of Admission:10/26/19 Date of Discharge: 10/27/19 Patient is a 79yof with Pmhx of HTN OA, lumbar disc herniation, IBS, presented to ED for elevated high blood pressure over 200 SBp. #HTN urgency: now back to her baseline continue home meds, also given low dose norvasc 2.5mg , follow up with the local announcer and the welfare service aide for further care #Acute chest pain r/o ACS, 2 sets of troponin is negative #R LE numbness, no numbness or coolness noted , patient admits to having herniated of her low back , but no numbness and tingling. added; norvasc, lipitor,ecotrin continue vascular studies, was negative for DVT DVT ppx: heparin Minutes to complete discharge: 35 Discharge Summary Problems reviewed: Yes Reason For Visit: ATYPICAL CHEST PAIN Current Active Problems Atypical chest pain (Acute) Condition: Good - Instructions Diet, Activity, Other Instructions: low carbohydrate diet stool softener 200mg at bedtime for constipation Added Ecotrin 81mg orally daily Added Lipitor 20mg at bedtime please follow up with your primary care doctor within a week for further monitoring of your blood pressure follow up with a welfare service aide to have a stress test and and trans-thoracic echocardiogram Referrals: Fidel Brewer MD [Staff Physician] - 1 Week - Home Medications Comprehensive Discharge Medication List: Ambulatory Orders Losartan Potassium 50 mg PO HS 12/25/18 Calcium Carb/Magnesium Oxid/D3 [Calcium Magnesium + D Tablet] 1 each PO DAILY Montelukast Na [Singulair -] 10 mg PO HS 10/26/19 Orphenadrine/Aspirin/Caffeine [Norgesic Forte 50-770-60Mg Tb] 1 each PO ASDIR 10/26/19 This patient is new to me today: Yes Date on this admission: 10/27/19 Emergency Visit: Yes ED Registration Date: 10/26/19 Care time: The patient presented to the Emergency Department on the above date and was hospitalized for further evaluation of their emergent condition. Critical Care patient: No - Discharge Referral Referred to [facility] Med P.C[facility] No Physician Referral: James Benites DO ([facility])
[2019-10-27 13:31] VITALS: BP 134/82; PULSE 74
--- NOTE | 2019-10-27 17:12 | EKG ---
Test Reason : Blood Pressure : / mmHG Vent. Rate : 067 BPM Atrial Rate : 067 BPM P-R Int : 138 ms QRS Dur : 090 ms QT Int : 418 ms P-R-T Axes : 049 044 021 degrees QTc Int : 441 ms NORMAL SINUS RHYTHM NORMAL ECG WHEN COMPARED WITH ECG OF 29-DEC-2018 13:14, NO SIGNIFICANT CHANGE WAS FOUND BASELINE ARTIFACT Confirmed by JACK JOHN MD ([id number]) on 10/27/2019 5:12:30 PM Referred By: Confirmed By:JACK JOHN MD
[2019-10-27] MEDS ORDERED: ATORVASTATIN CA 40 MG TABLET (FP) PO SCH (22:00)
[2019-10-27] MEDS ORDERED: MONTELUKAST NA 10 MG TABLET PO SCH (22:00)
[2019-10-27] MEDS ORDERED: ATORVASTATIN CA 80 MG TABLET (FP) PO SCH (22:00)
[2019-10-27] MEDS ORDERED: LOSARTAN POTASSIUM 50 MG TABLET (FP) PO SCH ×2 (22:00)
== END 2019-10-27 13:31 | disposition home or self-care (01) ==
LOC: JER 15:55 → JERBED 18:56
PROVIDERS: ADMIT Internal Medicine; ATTEND Internal Medicine
PROC: 3E013GC Introduction of Other Therapeutic Substance into Subcutaneous Tissue, Percutaneous Approach (ICD-10-PCS; principal; 2019-10-26)
DX: I16.0 Hypertensive urgency (principal); R07.89 Other chest pain; I10 Essential (primary) hypertension; M19.90 Unspecified osteoarthritis, unspecified site; J45.909 Unspecified asthma, uncomplicated; K58.9 Irritable bowel syndrome, unspecified; Z88.8 Allergy status to other drugs, medicaments and biological substances; M51.26 Other intervertebral disc displacement, lumbar region; R20.0 Anesthesia of skin
CPT/HCPCS: 36415; 71046-TC-FY; 80053; 80061; 83036; 83721; 83735; 84100; 84443; 84484; 85025; 93005; 93010; 93970-TC; 96372; 99285-25; G0378; J1644; Q0162

== ENCOUNTER 2022-02-10 08:38 | Day surgery (SDC) | payer OTHER, BC ==
[2022-02-03 14:39] VITALS: BMI 35.0
[2022-02-10] MEDS: PHENYLEPHRINE 2.5% OPHTH SOLN 15 ML BOTTLE ONE ×3 (09:55→10:05)
[2022-02-10] MEDS: TROPICAMIDE 1% OPHTH SOLN 15 ML BOTTLE ONE ×3 (09:55→10:05)
[2022-02-10] MEDS: CYCLOPENTOLATE 2% OPHTH SOLN 2 ML BOTTLE ONE ×3 (09:55→10:05)
[2022-02-10] MEDS: CIPROFLOXACIN 0.3% EYE DROPS 5 ML BOTTLE ONE ×3 (09:55→10:05)
[2022-02-10] MEDS ORDERED: BSS (NA/CA/MG/K) BALANCED SALT SOLUTION OPHTH SOLN 15 ML BOTTLE ONE (10:30)
[2022-02-10] MEDS ORDERED: NEO/POLYMYX B SULF/DEXAMETH OPHTHALMIC 5ML BOTTLE ONE (10:30)
[2022-02-10] MEDS ORDERED: CARBACHOL 0.01% INTRA-OCULAR 1.5 ML VIAL ONE (10:30)
[2022-02-10] MEDS ORDERED: MIDAZOLAM HCL 2 MG/2 ML SINGLE DOSE VIAL ONE (10:39)
[2022-02-10 12:04] VITALS: TEMP 98.3
[2022-02-10 12:22] VITALS: BP 141/69; PULSE 62
== END 2022-02-10 12:24 | disposition home or self-care (01) ==
LOC: FASU 08:38
PROVIDERS: ATTEND Ophthalmology
PROC: 08RK3JZ Replacement of Left Lens with Synthetic Substitute, Percutaneous Approach (ICD-10-PCS; principal; 2022-02-10 11:31)
DX: H26.8 Other specified cataract (principal)
CPT/HCPCS: 66984; V2632

== ENCOUNTER 2023-06-22 07:29 | Day surgery (SDC) | payer OTHER, BC ==
[2023-06-17 16:51] VITALS: BMI 21.7
[2023-06-22] MEDS ORDERED: PHENYLEPHRINE 2.5% OPTHALMIC DROP 2ML BOTTLE ONE (07:40)
[2023-06-22] MEDS ORDERED: TROPICAMIDE 1% OPHTH SOLN 15 ML BOTTLE ONE (07:40)
[2023-06-22] MEDS ORDERED: CIPROFLOXACIN HCL 0.3% OPHTH 2.5ML BOTTLE ONE (07:40)
[2023-06-22] MEDS ORDERED: CYCLOPENTOLATE 2% OPHTH SOLN 2 ML BOTTLE ONE (07:40)
[2023-06-22] MEDS ORDERED: PHENYLEPHRINE 2.5% OPHTH SOLN 15 ML BOTTLE OD ONE ×3 (08:00→08:10)
[2023-06-22] MEDS ORDERED: TROPICAMIDE 1% OPHTH SOLN 15 ML BOTTLE OD ONE ×3 (08:00→08:10)
[2023-06-22] MEDS ORDERED: CYCLOPENTOLATE 2% OPHTH SOLN 2 ML BOTTLE OD ONE ×3 (08:00→08:10)
[2023-06-22] MEDS ORDERED: CIPROFLOXACIN 0.3% EYE DROPS 5 ML BOTTLE OD ONE ×2 (08:00→08:05)
[2023-06-22] MEDS ORDERED: CIPROFLOXACIN HCL 0.3% OPHTH 2.5ML BOTTLE OD ONE (08:10)
[2023-06-22] MEDS ORDERED: MIDAZOLAM HCL 2 MG/2 ML SINGLE DOSE VIAL ONE (08:15)
[2023-06-22] MEDS ORDERED: EPINEPHrine/PF 1 MG/1 ML (1:1,000) AMPULE ONE (09:31)
[2023-06-22] MEDS ORDERED: BSS (NA/CA/MG/K) BALANCED SALT SOLUTION OPHTH SOLN 15 ML BOTTLE ONE (09:32)
[2023-06-22] MEDS ORDERED: TETRACAINE 0.5% OPHTH SOLN 2 ML BOTTLE ONE (09:32)
[2023-06-22] MEDS ORDERED: LIDOCAINE 1% P/F 10 MG/ML VIAL ONE (09:32)
[2023-06-22] MEDS ORDERED: CARBACHOL 0.01% INTRA-OCULAR 1.5 ML VIAL ONE (09:32)
[2023-06-22] MEDS ORDERED: NEO/POLYMYX B SULF/DEXAMETH OPHTHALMIC 5ML BOTTLE ONE (09:32)
[2023-06-22 10:34] VITALS: TEMP 97.4
[2023-06-22 10:54] VITALS: BP 113/77; PULSE 74; RESP 18
== END 2023-06-22 10:54 | disposition home or self-care (01) ==
LOC: FASU 07:29
PROVIDERS: ATTEND Ophthalmology
PROC: 08RJ3JZ Replacement of Right Lens with Synthetic Substitute, Percutaneous Approach (ICD-10-PCS; principal; 2023-06-22 09:46)
DX: H26.8 Other specified cataract (principal)
CPT/HCPCS: 66984; V2632

== ENCOUNTER 2025-01-23 14:13 | Inpatient (IN) | payer OTHER, BC ==
[2025-01-23 14:21] VITALS: BMI 24.9
[2025-01-23] MEDS ORDERED: ACETAMINOPHEN 325 MG TABLET (FP) ONE (15:35)
[2025-01-23] MEDS ORDERED: LIDOCAINE 5% TOPICAL PATCH ONE (15:36)
[2025-01-23] MEDS: LIDOCAINE 5% TOPICAL PATCH TP ONE (15:44)
[2025-01-23] MEDS: ACETAMINOPHEN 500 MG TABLET (FP) PO ONE (15:44)
[2025-01-23] MEDS ORDERED: diazePAM 5 MG TABLET ONE (17:30)
[2025-01-23] MEDS: diazePAM 5 MG TABLET PO ONE (17:36)
[2025-01-23] MEDS ORDERED: MORPHINE SULFATE 2 MG/ML SYRINGE ONE (21:03)
[2025-01-23] MEDS: morphine SULFATE 4 MG/ML VIAL IVPUSH ONE (21:26)
[2025-01-23 21:27] LABS: HEMATOCRIT 44.5 % (34.1-44.9); HEMOGLOBIN 14.6 g/dL (11.2-15.7); MCHC 32.8 g/dl (32.2-35.5); MEAN CELL VOLUME 93.1 fl (79.4-94.8); MEAN PLT VOLUME 9.6 fl (9.4-12.3); PLATELET COUNT 381 x10^3/uL (182-369); RDW 12.6 % (12.5-17.0)
[2025-01-23 21:34] LABS: INR 0.93 (0.83-1.09); PROTHROMBIN TIME (PATIENT) 10.2 SEC (9.7-13.0)
[2025-01-23 21:37] LABS: ACTIVATED PTT 25.8 SECONDS (25.2-36.5)
[2025-01-23 22:30] LABS: ALBUMIN 4.4 g/dl (3.4-5.0); BILIRUBIN,TOTAL 0.8 mg/dL (0.2-1); BLOOD UREA NITROGEN 24.8 mg/dL (7-18); CALCIUM 10.6 mg/dL (8.5-10.1); CREATININE 0.7 mg/dL (0.55-1.3); POTASSIUM 3.8 mmol/L (3.5-5.1); TOT PROT 8.5 g/dl (6.4-8.2)
[2025-01-24] MEDS ORDERED: ACETAMINOPHEN 1000 MG/100 ML BAG IVPB PRN (00:45)
[2025-01-24] MEDS: LIDOCAINE 4% PATCH TP SCH (09:22)
[2025-01-24] MEDS: amLODIPine BESYLATE 5 MG TABLET (FP) PO SCH (09:22)
[2025-01-24 09:37] LABS: ABSOLUTE IMMATURE GRANULOCYTES 0.04 x10^3/uL (0.0-0.031); BASOPHILS # 0.04 x10^3/uL (0.01-0.08); EOSINOPHIL % 1.1 % (0.7-5.8); EOSINOPHILS # 0.05 x10^3/uL (0.04-0.36); HEMOGLOBIN 12.5 g/dL (11.2-15.7); MCHC 32.9 g/dl (32.2-35.5); MEAN CELL VOLUME 93.8 fl (79.4-94.8); MEAN PLT VOLUME 9.8 fl (9.4-12.3); MONOCYTE # 0.57 x10^3/uL (0.24-0.86); MONOCYTE % 12.5 % (4.7-12.5); PLATELET COUNT 333 x10^3/uL (182-369); RDW 12.5 % (12.5-17.0)
[2025-01-24 10:44] LABS: CALCIUM 9.3 mg/dL (8.5-10.1)
[2025-01-24 10:45] LABS: MAGNESIUM 2.5 mg/dL (1.8-2.4); POTASSIUM 3.7 mmol/L (3.5-5.1)
[2025-01-24 10:48] LABS: CREATININE 0.5 mg/dL (0.55-1.3); PHOSPHOROUS 3.9 mg/dL (2.5-4.9)
[2025-01-24 10:58] LABS: ALBUMIN 3.3 g/dl (3.4-5.0); TOT PROT 6.4 g/dl (6.4-8.2)
[2025-01-24] MEDS: ASPIRIN COATED 81 MG TABLET.EC PO SCH (11:02)
[2025-01-24] MEDS: HEPARIN NA (PORCINE) 5,000 UNITS/ML 1ML VIAL SQ SCH (11:03)
[2025-01-24] MEDS: POLYETHYLENE GLYCOL (HEALTHYLAX) 3350 17 GM PACKET PO SCH (11:03)
[2025-01-24] MEDS ORDERED: KETOROLAC TROMETHAMINE 30 MG/1 ML VIAL IVPUSH PRN ×2 (18:29→18:32)
[2025-01-24] MEDS: LIDOCAINE PATCH REMOVAL MC SCH ×2 (19:39→21:18)
[2025-01-24] MEDS: ACETAMINOPHEN 1000 MG/100 ML BAG IVPB SCH (19:47)
[2025-01-24] MEDS: GABAPENTIN 100 MG CAPSULE PO SCH (21:18)
[2025-01-25 09:31] LABS: ABSOLUTE IMMATURE GRANULOCYTES 0.02 x10^3/uL (0.0-0.031); BASOPHILS # 0.05 x10^3/uL (0.01-0.08); EOSINOPHIL % 1.7 % (0.7-5.8); EOSINOPHILS # 0.08 x10^3/uL (0.04-0.36); HEMATOCRIT 40.1 % (34.1-44.9); HEMOGLOBIN 13.1 g/dL (11.2-15.7); MCHC 32.7 g/dl (32.2-35.5); MEAN CELL VOLUME 93.7 fl (79.4-94.8); MEAN PLT VOLUME 9.9 fl (9.4-12.3); MONOCYTE # 0.51 x10^3/uL (0.24-0.86); MONOCYTE % 10.7 % (4.7-12.5); PLATELET COUNT 317 x10^3/uL (182-369); RDW 12.4 % (12.5-17.0)
[2025-01-25 09:55] LABS: POTASSIUM 4.1 mmol/L (3.5-5.1)
[2025-01-25 09:57] LABS: CALCIUM 9.8 mg/dL (8.5-10.1)
[2025-01-25 09:58] LABS: ALBUMIN 3.5 g/dl (3.4-5.0); BLOOD UREA NITROGEN 18.4 mg/dL (7-18); MAGNESIUM 2.4 mg/dL (1.8-2.4)
[2025-01-25 10:00] LABS: CREATININE 0.5 mg/dL (0.55-1.3)
[2025-01-25 10:03] LABS: BILIRUBIN,TOTAL 0.8 mg/dL (0.2-1); TOT PROT 6.9 g/dl (6.4-8.2)
[2025-01-25] MEDS: LACTATED RINGERS SOLUTION 1,000 ML/1,000 ML INFUS.BAG IV SCH (11:08)
[2025-01-25] MEDS: SENNOSIDES 8.6MG TABLET (FP) PO SCH (21:57)
[2025-01-26] MEDS: METHOCARBAMOL 500 MG TABLET PO SCH ×2 (00:06→01:15)
[2025-01-26] MEDS ORDERED: traMADol HCL 50 MG TABLET PO PRN (07:48)
[2025-01-26 09:01] LABS: ABSOLUTE IMMATURE GRANULOCYTES 0.02 x10^3/uL (0.0-0.031); BASOPHILS # 0.03 x10^3/uL (0.01-0.08); EOSINOPHIL % 3.8 % (0.7-5.8); EOSINOPHILS # 0.15 x10^3/uL (0.04-0.36); HEMATOCRIT 36.3 % (34.1-44.9); HEMOGLOBIN 12.1 g/dL (11.2-15.7); MCHC 33.3 g/dl (32.2-35.5); MEAN CELL VOLUME 93.3 fl (79.4-94.8); MEAN PLT VOLUME 9.9 fl (9.4-12.3); MONOCYTE # 0.42 x10^3/uL (0.24-0.86); MONOCYTE % 10.7 % (4.7-12.5); PLATELET COUNT 271 x10^3/uL (182-369); RDW 12.3 % (12.5-17.0)
[2025-01-26 09:15] LABS: POTASSIUM 3.7 mmol/L (3.5-5.1)
[2025-01-26 09:20] LABS: CALCIUM 9.4 mg/dL (8.5-10.1)
[2025-01-26 09:21] LABS: ALBUMIN 3.3 g/dl (3.4-5.0); BLOOD UREA NITROGEN 14.5 mg/dL (7-18); MAGNESIUM 2.4 mg/dL (1.8-2.4)
[2025-01-26 09:24] LABS: CREATININE 0.4 mg/dL (0.55-1.3)
[2025-01-26 09:25] LABS: TOT PROT 6.3 g/dl (6.4-8.2)
[2025-01-26 09:26] LABS: BILIRUBIN,TOTAL 0.7 mg/dL (0.2-1)
[2025-01-26] MEDS: ACETAMINOPHEN 1000 MG/100 ML BAG IVPB SCH (09:33)
[2025-01-26 10:36] VITALS: RESP 18
[2025-01-27 11:25] LABS: ABSOLUTE IMMATURE GRANULOCYTES 0.02 x10^3/uL (0.0-0.031); BASOPHILS # 0.04 x10^3/uL (0.01-0.08); EOSINOPHIL % 4.5 % (0.7-5.8); EOSINOPHILS # 0.23 x10^3/uL (0.04-0.36); HEMOGLOBIN 11.8 g/dL (11.2-15.7); MCHC 32.8 g/dl (32.2-35.5); MEAN PLT VOLUME 10.4 fl (9.4-12.3); MONOCYTE # 0.49 x10^3/uL (0.24-0.86); MONOCYTE % 9.7 % (4.7-12.5); PLATELET COUNT 281 x10^3/uL (182-369); RDW 12.7 % (12.5-17.0)
[2025-01-27 11:40] LABS: POTASSIUM 3.8 mmol/L (3.5-5.1)
[2025-01-27 11:42] LABS: CALCIUM 9.2 mg/dL (8.5-10.1)
[2025-01-27 11:43] LABS: ALBUMIN 3.1 g/dl (3.4-5.0); BLOOD UREA NITROGEN 17.8 mg/dL (7-18); MAGNESIUM 2.3 mg/dL (1.8-2.4)
[2025-01-27 11:46] LABS: CREATININE 0.4 mg/dL (0.55-1.3)
[2025-01-27 11:47] LABS: TOT PROT 6.2 g/dl (6.4-8.2)
[2025-01-27 11:48] LABS: BILIRUBIN,TOTAL 0.5 mg/dL (0.2-1)
[2025-01-27] MEDS ORDERED: traMADol HCL 50 MG TABLET PO PRN (12:13)
[2025-01-27] MEDS: ACETAMINOPHEN 1000 MG/100 ML BAG IVPB SCH (12:34)
[2025-01-28 09:43] LABS: ABSOLUTE IMMATURE GRANULOCYTES 0.02 x10^3/uL (0.0-0.031); BASOPHILS # 0.05 x10^3/uL (0.01-0.08); EOSINOPHIL % 3.5 % (0.7-5.8); EOSINOPHILS # 0.18 x10^3/uL (0.04-0.36); HEMATOCRIT 40.7 % (34.1-44.9); HEMOGLOBIN 13.4 g/dL (11.2-15.7); MCHC 32.9 g/dl (32.2-35.5); MEAN CELL VOLUME 95.1 fl (79.4-94.8); MEAN PLT VOLUME 9.7 fl (9.4-12.3); MONOCYTE # 0.42 x10^3/uL (0.24-0.86); MONOCYTE % 8.2 % (4.7-12.5); PLATELET COUNT 278 x10^3/uL (182-369); RDW 13.1 % (12.5-17.0)
[2025-01-28 10:09] LABS: POTASSIUM 3.6 mmol/L (3.5-5.1)
[2025-01-28 10:21] LABS: MAGNESIUM 2.4 mg/dL (1.8-2.4)
[2025-01-28 10:25] LABS: ALBUMIN 3.5 g/dl (3.4-5.0); BLOOD UREA NITROGEN 11.6 mg/dL (7-18); CALCIUM 9.6 mg/dL (8.5-10.1)
[2025-01-28 10:27] LABS: CREATININE 0.5 mg/dL (0.55-1.3)
[2025-01-28 10:28] LABS: TOT PROT 6.9 g/dl (6.4-8.2)
[2025-01-28 10:31] LABS: BILIRUBIN,TOTAL 0.6 mg/dL (0.2-1)
[2025-01-29] MEDS ORDERED: ACETAMINOPHEN 325 MG TABLET (FP) PO PRN (07:40)
[2025-01-29 08:54] LABS: ABSOLUTE IMMATURE GRANULOCYTES 0.04 x10^3/uL (0.0-0.031); BASOPHILS # 0.05 x10^3/uL (0.01-0.08); EOSINOPHILS # 0.24 x10^3/uL (0.04-0.36); HEMATOCRIT 36.5 % (34.1-44.9); MCHC 32.9 g/dl (32.2-35.5); MEAN CELL VOLUME 94.1 fl (79.4-94.8); MEAN PLT VOLUME 10.1 fl (9.4-12.3); MONOCYTE # 0.64 x10^3/uL (0.24-0.86); MONOCYTE % 10.7 % (4.7-12.5); PLATELET COUNT 251 x10^3/uL (182-369); RDW 12.8 % (12.5-17.0)
[2025-01-29 09:24] LABS: POTASSIUM 3.7 mmol/L (3.5-5.1)
[2025-01-29 09:30] LABS: ALBUMIN 3.3 g/dl (3.4-5.0); BLOOD UREA NITROGEN 13.2 mg/dL (7-18); CALCIUM 9.4 mg/dL (8.5-10.1); MAGNESIUM 2.3 mg/dL (1.8-2.4)
[2025-01-29 09:31] LABS: CREATININE 0.4 mg/dL (0.55-1.3)
[2025-01-29 09:34] LABS: BILIRUBIN,TOTAL 0.8 mg/dL (0.2-1); TOT PROT 6.4 g/dl (6.4-8.2)
[2025-01-29] MEDS ORDERED: ONDANSETRON 8 MG TABLET (FP) PO PRN (10:16)
[2025-01-29] MEDS ORDERED: ONDANSETRON *ODT* 4 MG TABLET SL PRN (10:25)
[2025-01-29 11:01] VITALS: BP 132/68; PULSE 74; TEMP 97.9
[2025-01-29] MEDS: GABAPENTIN 100 MG CAPSULE PO SCH (14:38)
== END 2025-01-29 18:25 | DRG 552 ==
LOC: JER 14:13 → JERBED 20:38 → J6S 22:36 → OBSVTOIN 01-24 01:01 → J6S 01-26 01:13
PROVIDERS: ADMIT Student in an Organized Health Care Education/Training Program; ATTEND Internal Medicine
DX: S32.031A Stable burst fracture of third lumbar vertebra, initial encounter for closed fracture (principal); R45.851 Suicidal ideations; M54.16 Radiculopathy, lumbar region; D64.9 Anemia, unspecified; K59.09 Other constipation; I10 Essential (primary) hypertension; K58.9 Irritable bowel syndrome, unspecified; I35.1 Nonrheumatic aortic (valve) insufficiency; X50.0XXA Overexertion from strenuous movement or load, initial encounter; Y93.89 Activity, other specified; Y92.89 Other specified places as the place of occurrence of the external cause; Y99.8 Other external cause status
CPT/HCPCS: 0241U-QW; 36415; 71045-TC-FY; 72131-TC; 72158-TC; 80053; 82962; 83735; 84100; 85025; 85027; 85610; 85730; 86850; 86900; 86901; 93005; 93010; 93306-TC; 97116-GP; 97162-GP; 99285-25; G0378; J0131; J1644